=== PATIENT | female | born 1945 | race Caucasian/White ===

== ENCOUNTER 2016-10-05 11:14 | Emergency (ER) | payer OTHER ==
[~2016-10-05] VITALS: Ht 152.4 cm; Wt 51.0 kg
[2016-10-05 11:14] VITALS: TEMP 36.9; Ht 152.4 cm; Wt 51.0 kg
[~2016-10-05 11:14] MED LIST: AMT24 PO; ASCO1CAP3 PO; BROM0.07 OPR; CHOL1000 PO; KLN5X PO; PRED1SUS3 OPL; SIMV40TA2 PO; TRIATAB3 PO; VENL150C56 PO
[2016-10-05] MEDS ORDERED: VENL75CA73 PO (12:02)
[2016-10-05] MEDS ORDERED: BUSP5TAB59 PO (12:03)
[2016-10-05] MEDS ORDERED: PRLSR20 PO (12:03)
[2016-10-05] MEDS ORDERED: SUMA100T16 PO (12:05)
[2016-10-05] MEDS ORDERED: ONDANSETRON INJ 2 MG/ML 2 ML VIAL IV STA (12:34)
[2016-10-05] MEDS ORDERED: SODIUM CHLORIDE 0.9% 1000ML 1,000 ML IV STA (12:34)
[2016-10-05] MEDS ORDERED: LOPERAMIDE HCL 2 MG CAP PO STA (12:34)
[2016-10-05 12:43] LABS: BASO % 0.1 %; BASO ABS # 0.01 K/uL (0-0.2); COMPLETE YES; EOS % 1.3 %; HEMATOCRIT 44.8 % (37-47); IG% 0.1 %; LYMPH % 9.1 %; LYMPH ABS # 0.72 K/uL (1.2-3.4); MEAN CELL VOLUME 88.9 fL (80-100); MEAN CORPUSCULAR HGB CONC 33.7 g/dl (32-36); MONO % 8.6 %; NEUT % 80.8 %; PLATELET COUNT 159 K/uL (130-400); RED BLOOD COUNT 5.04 M/uL (4.2-5.4); WHITE BLOOD COUNT 7.91 K/uL (4.8-10.8)
[2016-10-05 12:51] LABS: BUN/CREATININE RATIO 26.9 (10-20); CALCIUM 9.3 mg/dl (8.5-10.1); CREATININE 0.7 mg/dl (0.60-1.20); POTASSIUM 3.1 mmol/L (3.5-5.1)
[2016-10-05] MEDS ORDERED: LORAZEPAM 2 MG/ML 1 ML VIAL IV STA (12:51)
[2016-10-05] MEDS ORDERED: ONDA4TAB10 SL (15:23)
--- NOTE | 2016-10-05 15:23 | EMERGENCY ROOM VISIT NOTE ---
History Report prepared by Jhonnyibrizwan: Adrien Cobos Under the Supervision of: Dr. Souleymane White D.O. First contact with patient: 12:28 Chief Complaint: DIARRHEA Stated Complaint: FLU SX Nursing Triage Summary: patient to ED via BLS for n/v/d since 329 this morning. Patient states, "every thirty minutes I have diarrhea or vomit, its the third time since . I was told maybe its the flu. This time whats different is I just started feeling so weak." History of Present Illness The patient is a 71 year old female who presents to the Emergency Room with complaints of persistent diarrhea since 329 this morning. The patient also complains of nausea, vomiting, and abdominal cramping since 299. The patient is becoming increasingly lightheaded and weak as her symptoms continue. The patient tried taking anti-emetics at home this morning, which she vomited out after taking it. This is the patient's third time experiencing these symptoms since . Source of History: patient Onset: 329 this morning Position: other (GI) Quality: other (diarrhea) Timing: other (persistent) Associated Symptoms: + abdominal pain, + nausea, + vomiting, + weakness Review of Systems See HPI for pertinent positives & negatives. A total of 10 systems reviewed and were otherwise negative. Past Medical & Surgical Medical Problems: (1) Anxiety (2) HLD (hyperlipidemia) Family History Patient reports no known family medical history. Social History Smoking Status: Never Smoker Housing Status: lives with family Current/Historical Medications Scheduled Ascorbic Acid (Vitamin C), 1 CAP PO HS Buspirone Hcl (Buspirone Hcl), 1 TAB PO TID Cholecalciferol (Vitamin D3), 1 TAB PO BID Clonazepam (Clonazepam), 1 TAB PO QAM Clonazepam (Clonazepam), 0.5 TAB PO BID Omeprazole (Prilosec), 20 MG PO DAILY Ondasetron Odt (Zofran Odt), 4 MG SL Q6H Simvastatin (Zocor), 40 MG PO QPM Triamterene/Hctz (Triamterene/Hctz 37.5-25MG), 1 TAB PO QAM Venlafaxine Hcl (Venlafaxine Extended Rel), 75 MG PO DAILY Scheduled PRN Lubiprostone (Amitiza), 24 MCG PO QAM PRN for Constipation Sumatriptan Succinate (Imitrex), 33 MG PO PRN PRN for Migraine Allergies Coded Allergies: No Known Allergies (Unverified , 10/05/16) Physical Exam Vital Signs Date Time Temp Pulse Resp B/P Pulse Ox O2 Delivery O2 Flow Rate FiO2 10/05/16 15:35 106 18 137/85 93 Room Air 10/05/16 14:34 118 22 114/76 97 Room Air 10/05/16 13:19 104 10/05/16 12:43 109 18 133/81 96 Room Air 10/05/16 11:18 109 10/05/16 11:14 36.9 112 20 154/101 97 Room Air Physical Exam CONSTITUTIONAL/VITAL SIGNS: Reviewed / noted above. GENERAL: Non-toxic in appearance. INTEGUMENTARY: Warm, dry, and [place]. HEAD: Normocephalic. EYES: without scleral icterus or trauma. ENT/OROPHARYNX: clear and moist. LYMPHADENOPATHY/NECK: Is supple without lymphadenopathy or meningismus. RESPIRATORY: Lungs clear and equal. CARDIOVASCULAR: Regular rate and rhythm. GI/ABDOMEN: Soft and nontender. No organomegaly or pulsatile mass. No rebound or guarding. Hyperactive bowel sounds. EXTREMITIES: Warm and well perfused. BACK: No CVA tenderness. NEUROLOGICAL: Intact without focal deficits. PSYCHIATRIC: normal affect. MUSCULOSKELETAL: Normally developed with good muscle tone. Medical Decision & Procedures Laboratory Results 10/05/16 11:25 Red Blood Count 5.04, Mean Corpuscular Volume 88.9, Mean Corpuscular Hemoglobin 30.0, Mean Corpuscular Hemoglobin Concent 33.7, Mean Platelet Volume 10.0, Neutrophils (%) (Auto) 80.8, Lymphocytes (%) (Auto) 9.1, Monocytes (%) (Auto) 8.6, Eosinophils (%) (Auto) 1.3, Basophils (%) (Auto) 0.1, Neutrophils # (Auto) 6.39, Lymphocytes # (Auto) 0.72, Monocytes # (Auto) 0.68, Eosinophils # (Auto) 0.10, Basophils # (Auto) 0.01 10/05/16 11:25 Test 10/05/16 11:25 White Blood Count 7.91 K/uL (4.8-10.8) Red Blood Count 5.04 M/uL (4.2-5.4) Hemoglobin 15.1 g/dL (12.0-16.0) Hematocrit 44.8 % (37-47) Mean Corpuscular Volume 88.9 fL (80-100) Mean Corpuscular Hemoglobin 30.0 pg (25-34) Mean Corpuscular Hemoglobin Concent 33.7 g/dl (32-36) Platelet Count 159 K/uL (130-400) Mean Platelet Volume 10.0 fL (7.4-10.4) Neutrophils (%) (Auto) 80.8 % Lymphocytes (%) (Auto) 9.1 % Monocytes (%) (Auto) 8.6 % Eosinophils (%) (Auto) 1.3 % Basophils (%) (Auto) 0.1 % Neutrophils # (Auto) 6.39 K/uL (1.4-6.5) Lymphocytes # (Auto) 0.72 K/uL (1.2-3.4) Monocytes # (Auto) 0.68 K/uL (0.11-0.59) Eosinophils # (Auto) 0.10 K/uL (0-0.5) Basophils # (Auto) 0.01 K/uL (0-0.2) RDW Standard Deviation 46.5 fL (36.4-46.3) RDW Coefficient of Variation 14.2 % (11.5-14.5) Immature Granulocyte % (Auto) 0.1 % Immature Granulocyte # (Auto) 0.01 K/uL (0.00-0.02) Anion Gap 12.0 mmol/L (3-11) Est Creatinine Clear Calc Drug Dose 53.7 ml/min Estimated GFR () 101.7 Estimated GFR (Non- 87.8 BUN/Creatinine Ratio 26.9 (10-20) Calcium Level 9.3 mg/dl (8.5-10.1) Total Bilirubin 0.5 mg/dl (0.2-1) Direct Bilirubin 0.1 mg/dl (0-0.2) Aspartate Amino Transf (AST/SGOT) 29 U/L (15-37) Alanine Aminotransferase (ALT/SGPT) 54 U/L (12-78) Alkaline Phosphatase 57 U/L (45-117) Total Protein 7.2 gm/dl (6.4-8.2) Albumin 4.0 gm/dl (3.4-5.0) Lipase 155 U/L (73-393) Laboratory results as stated above per my review. Medications Administered Medications (Trade) Dose Ordered Sig/Mallory Route Start Time Stop Time Status Last Admin Dose Admin Sodium Chloride (Nss 1000ml) 1,000 ml @ 999 mls/hr Q1H1M STAT IV 10/05/16 12:34 10/05/16 13:34 DC 10/05/16 12:34 999 MLS/HR Ondansetron HCl (Zofran Inj) 4 mg NOW STAT IV 10/05/16 12:34 10/05/16 12:35 DC 10/05/16 12:42 4 MG Loperamide HCl (Imodium Cap) 2 mg NOW STAT PO 10/05/16 12:34 10/05/16 12:35 DC 10/05/16 12:42 2 MG Lorazepam (Ativan Inj) 0.5 mg NOW STAT IV 10/05/16 12:51 10/05/16 12:52 DC 10/05/16 13:11 0.5 MG Potassium Chloride (Klor-Con M10) 40 meq NOW STAT PO 10/05/16 15:26 10/05/16 15:27 DC 10/05/16 15:34 40 MEQ ECG Indication: nausea Rate (beats per minute): 106 Rhythm: sinus tachycardia Findings: no acute ischemic change, no ectopy ED Course 1230: Previous medical records were reviewed. The patient was evaluated in room C7. A complete history and physical examination was performed. 1234: Imodium 2 mg PO, Zofran 4 mg IV, NSS 1000 ml @ 999 mls/hr. 1251: Ativan 0.5 mg IV. 1525: Reassessed the patient. Discussed the findings with her. She verbalized understanding and agreement. The patient is ready for discharge. Medical Decision Differential considered: pancreatitis, hepatitis, or acute cholecystitis, AAA, UTI, pyelonephritis, kidney stones, appendicitis, diverticulitis, shingles, bowel obstruction mesenteric ischemia, intussusception,hernia. This is a 71-year-old female who presents to the ED with a chief complaint nausea, vomiting and diarrhea. The patient also has some abdominal cramps. She states that her symptoms started around 3:30 in the morning. She states that she is not sure if this is related to anxiety or a GI illness. The patient states that she had 2 recent deaths in the family. She doesn't history of anxiety. Her vital signs are stable. Physical exam was unremarkable. Blood work reveals a normal CBC. Potassium was 3.1 and BUN is 19. Lipase is negative. Metabolic panel was unremarkable. The patient was told the results the test per she was treated with IV fluids as well as IV Zofran. She was given IV Ativan. She was given by mouth potassium. Her symptoms did seem to be improved at the time of disposition discharge. Impression Primary Impression: Nausea vomiting and diarrhea Scribe Attestation The scribe's documentation has been prepared under my direction and personally reviewed by me in its entirety. I confirm that the note above accurately reflects all work, treatment, procedures, and medical decision making performed by me. Departure Information Dispostion Home / Self-Care Prescriptions Ondasetron Odt (ZOFRAN ODT) 4 Mg Tab 4 MG SL Q6H for Nausea, #20 TAB Prov: Souleymane White D.O. 10/05/16 Referrals Lola Galeas C.R.N.P (PCP) Forms HOME CARE DOCUMENTATION FORM, IMPORTANT VISIT INFORMATION, WORK / SCHOOL INSTRUCTIONS Patient Instructions My [facility] Additional Instructions Follow-up with your doctor for further care and evaluation in 1-2 days. Return to the emergency department for worsening or new symptoms or any concerns. You have been examined and treated today on an emergency basis only. This is not a substitute for, or an effort to provide, complete comprehensive medical care. It is impossible to recognize and treat all injuries or illnesses in a single emergency department visit. It is therefore important that you follow up closely with your doctor. Call as soon as possible for an appointment. Zofran: Allow one tablet to dissolve under the tongue every 6 hours as needed for nausea or vomiting. Sent to [facility].
[2016-10-05] MEDS ORDERED: POTASSIUM CHLORIDE 10 MEQ TABCR PO STA (15:26)
[2016-10-05 15:35] VITALS: BP 137/85; PULSE 106; O2SAT 93
== END 2016-10-05 15:40 | disposition home or self-care (01) ==
LOC: EDBD 11:14 → C.EDC 11:15
DX: R11.2 Nausea with vomiting, unspecified (principal); R19.7 Diarrhea, unspecified; F41.9 Anxiety disorder, unspecified; E78.5 Hyperlipidemia, unspecified; Z79.899 Other long term (current) drug therapy

== ENCOUNTER → 2016-10-13 | Outpatient (CLI) | payer OTHER ==
[~2016-10-13] MED LIST changes: -BROM0.07 OPR; +BUSP5TAB59 PO; +ONDA4TAB10 SL; -PRED1SUS3 OPL; +PRLSR20 PO; +SUMA100T16 PO; -VENL150C56 PO; +VENL75CA73 PO
--- NOTE | 2016-10-13 15:28 | DIAGNOSTIC IMAGING REPORT ---
THORACIC SPINE 3 VIEWS HISTORY: Pain THORACIC BACK PAIN COMPARISON: None. FINDINGS: There is no fracture. Moderate S-shaped scoliosis moderate degenerative disc change. No evidence for compression deformity. Mild osteopenia. IMPRESSION: Scoliosis. Moderate degenerative disc change. No acute process. Electronically signed by: Marco Buck M.D. 10/13/2016 3:27 PM Dictated Date/Time: 10/13/2016 3:24 PM
[2016-10-13 19:05] LABS: ALT/SGPT 40 U/L (12-78); BLOOD UREA NITROGEN 17 mg/dl (7-18); BUN/CREATININE RATIO 19.2 (10-20); CALCIUM 9.4 mg/dl (8.5-10.1); CARBON DIOXIDE 31 mmol/L (21-32); CHLORIDE 102 mmol/L (98-107); CREATININE 0.87 mg/dl (0.60-1.20); GLUCOSE 89 mg/dl (70-99); POTASSIUM 3.8 mmol/L (3.5-5.1); SODIUM 140 mmol/L (136-145)
[2016-10-13 19:15] LABS: ALB/GLOB RATIO 1.1 (0.9-2); ALKALINE PHOSPHATASE 54 U/L (45-117); AST/SGOT 25 U/L (15-37)
== END | disposition home or self-care (01) ==
LOC: C.LABPVFM 14:58
PROVIDERS: ATTEND Nurse Practitioner
DX: M54.6 Pain in thoracic spine (principal); E87.6 Hypokalemia; R00.0 Tachycardia, unspecified

== ENCOUNTER → 2017-05-02 | Outpatient (CLI) | payer OTHER ==
[~2017-05-02] MED LIST changes: -ONDA4TAB10 SL
[2017-05-02 13:13] LABS: BLOOD UREA NITROGEN 16 mg/dl (7-18); BUN/CREATININE RATIO 21.2 (10-20); CARBON DIOXIDE 30 mmol/L (21-32); CHLORIDE 103 mmol/L (98-107); CHOLESTEROL 191 mg/dl (0-200); CREATININE 0.73 mg/dl (0.60-1.20); GLUCOSE 101 mg/dl (70-99); POTASSIUM 3.3 mmol/L (3.5-5.1); SODIUM 141 mmol/L (136-145); TRIGLYCERIDES 87 mg/dl (0-150); VERY LOW DENSITY LIPOPROT CALC 17 mg/dl
[2017-05-02 13:18] LABS: CHOLESTEROL/HDL RATIO 2.4; HDL CHOLESTEROL 81 mg/dl; LDL CHOLESTEROL CALCULATED 93 mg/dl
== END | disposition home or self-care (01) ==
LOC: C.LABPVFM 09:43
PROVIDERS: ATTEND Nurse Practitioner
DX: I10 Essential (primary) hypertension (principal); M85.80 Other specified disorders of bone density and structure, unspecified site; E55.9 Vitamin D deficiency, unspecified; E78.5 Hyperlipidemia, unspecified

== ENCOUNTER → 2017-06-01 | Outpatient (CLI) | payer OTHER | END | disposition home or self-care (01) | LOC: C.LABPVFM 09:33 | PROVIDERS: ATTEND Nurse Practitioner | DX: E87.6 Hypokalemia (principal) ==

== ENCOUNTER → 2017-06-06 | Outpatient (CLI) | payer OTHER ==
--- NOTE | 2017-06-07 08:12 | MAMMOGRAPHY REPORT ---
BILATERAL DIGITAL SCREENING MAMMOGRAM TOMOSYNTHESIS WITH CAD: 06/06/2017 CLINICAL HISTORY: Asymptomatic. Personal history of left breast cancer status post breast conservati on treatment. TECHNIQUE: Breast tomosynthesis in addition to standard 2D mammography was performed. Current study was also evaluated with a Computer Aided Detection (CAD) system. COMPARISON: Comparison is made to exams dated: 05/24/2016 mammogram, 05/21/2015 mammogram, 05/19/2014 m ammogram, 05/14/2013 mammogram, 05/10/2012 mammogram, and 05/05/2011 mammogram - [facility] ter. BREAST COMPOSITION: The tissue of both breasts is heterogeneously dense, which may obscure small mas ses. FINDINGS: There is a possible cluster of microcalcifications in the lateral posterior right breast o nly seen on the CC view, for which additional spot magnification views are recommended. There is a 6 mm nodular asymmetry in the medial, middle one third of the left breast on the CC tomosynthesis imag es (slice 20/38), for which additional spot compression tomosynthesis views and possible ultrasound a re recommended. No other suspicious mass, architectural distortion or cluster of microcalcifications is seen bilatera lly. IMPRESSION: ACR BI-RADS CATEGORY 0: INCOMPLETE EVALUATION: NEED ADDITIONAL IMAGING EVALUATION The possible cluster of microcalcifications in the lateral posterior right breast, and 6 mm nodular a symmetry in the medial left breast need additional imaging evaluation. The patient will be called to schedule an appointment. Approximately 10% of breast cancers are not detected with mammography. A negative mammographic report should not delay biopsy if a clinically suggestive mass is present. Ayanna Bennett M.D. ay/:06/06/2017 16:45:55 [place]bel Architect: Elisa NORMAN(R)(M), [facility] letter sent: Addl Imaging 0 BI-RADS Code: ACR BI-RADS Category 0: Incomplete Evaluation: Need Additional Imaging Evaluation
== END | disposition home or self-care (01) ==
LOC: C.MAMM 13:37
PROVIDERS: ATTEND Nurse Practitioner
DX: Z12.31 Encounter for screening mammogram for malignant neoplasm of breast (principal); E55.9 Vitamin D deficiency, unspecified; M81.0 Age-related osteoporosis without current pathological fracture; M85.88 Other specified disorders of bone density and structure, other site; M85.852 Other specified disorders of bone density and structure, left thigh

== ENCOUNTER → 2017-06-21 | Outpatient (CLI) | payer OTHER ==
--- NOTE | 2017-06-22 07:48 | MAMMOGRAPHY REPORT ---
BILATERAL DIGITAL DIAGNOSTIC MAMMOGRAM TOMOSYNTHESIS AND TARGETED BILATERAL ULTRASOUND: 06/21/2017 CLINICAL HISTORY: Callback from screening mammogram for left breast asymmetry and right breast calcif ications. TECHNIQUE: Breast tomosynthesis in addition to standard 2D mammography was performed. Spot compress ion left CC 2-D and tomosynthesis images and spot magnification right cc and ML views were obtained. COMPARISON: Comparison is made to exams dated: 06/06/2017 mammogram, 05/24/2016 mammogram, 05/21/2015 m ammogram, 05/19/2014 mammogram, 05/14/2013 mammogram, and 05/10/2012 mammogram - [facility] nter. BREAST COMPOSITION: The tissue of both breasts is heterogeneously dense, which may obscure small mas ses. FINDINGS: Spot magnification views of the right breast demonstrate 2 adjacent clusters of calcificat ions in the right 9:00 posterior breast. One of the clusters is shown to be within an oval circumscr ibed 5 mm mass; the calcifications are faint and amorphous on the cc view and show layering within th e mass on the lateral view, consistent with benign milk of calcium within a cyst. The other adjacent small 2 mm cluster also shows layering on the lateral view, consistent with benign milk of calcium. Other scattered calcifications demonstrate layering on the lateral view, consistent with benign milk of calcium. No suspicious calcifications are noted on the additional views. The nodular 5 mm asymmetry seen within the left medial breast on the cc tomosynthesis images persists on the additional views, but appears similar to prior exams including the 2015 and 2-D images from t 2009 exam. Given the stability to prior exams, the finding likely represents normal fibroglandula r tissue. Targeted ultrasound was performed of the left medial breast in the region of the mammographic asymmet ry, which shows no suspicious masses or other suspicious sonographic abnormalities. Targeted ultraso und was performed of the area of the right breast mass with associated layering calcifications. In t he right breast at 9:00, 4 cm from the nipple, there is a round anechoic circumscribed mass with inte rnal layering punctate echogenic foci, consistent with a layering calcifications seen mammographicall y. The mass measures 3 x 4 mm and is consistent with a benign cyst. IMPRESSION: ACR BI-RADS CATEGORY 2: BENIGN, TARGETED ULTRASOUND ACR BI-RADS CATEGORY 2: BENIGN 1. Grouped calcifications in the right upper outer quadrant are benign and compatible with milk of c alcium. 2. Left medial breast asymmetry appears similar to prior exams including the 2016 and 2010 exams on the additional views, without corresponding suspicious sonographic abnormality evident. Findings are benign and compatible with normal fibroglandular tissue. There is no mammographic or targeted sonographic evidence of malignancy. A 1 year screening mammogram is recommended. The patient has been verbally notified of the results. Approximately 10% of breast cancers are not detected with mammography. A negative mammographic report should not delay biopsy if a clinically suggestive mass is present. Vandana Yun M.D. ah/:06/21/2017 15:04:55 [employer] Extension Agent: Korin NORMAN(R)(M), [facility] letter sent: Normal 1/2 BI-RADS Code: ACR BI-RADS Category 2: Benign Ultrasound BI-RADS: ACR BI-RADS Category 2: Benign
== END | disposition home or self-care (01) ==
LOC: C.MAMM 13:42
PROVIDERS: ATTEND Nurse Practitioner
DX: R92.0 Mammographic microcalcification found on diagnostic imaging of breast (principal); N64.89 Other specified disorders of breast

== ENCOUNTER 2017-06-30 21:15 | Emergency (ER) | payer OTHER ==
[~2017-06-30] VITALS: Ht 167.6 cm; Wt 56.0 kg
[2017-06-30 21:21] VITALS: Ht 167.6 cm; Wt 56.0 kg
[2017-06-30] MEDS ORDERED: SODIUM CHLORIDE 0.9% 1000ML 1,000 ML IV STA (21:26)
[2017-06-30] MEDS ORDERED: ONDANSETRON INJ 2 MG/ML 2 ML VIAL IV STA (21:26)
[2017-06-30] MEDS ORDERED: KETOROLAC TROMETHAMINE 30 MG/ML VIAL IV STA (21:26)
--- NOTE | 2017-06-30 21:35 | EMERGENCY ROOM VISIT NOTE ---
History Report prepared by Eunice: Rupal Rubio Under the Supervision of: Dr. Jose Dickey M.D. First contact with patient: 21:19 Chief Complaint: GI ASSESSMENT Stated Complaint: NAUSEA, VOMITING, DIARRHEA History of Present Illness The patient is a 72 year old female who presents to the Emergency Room with complaints of and episode of vomiting and diarrhea occurring two hours ago. The patient notes she was unable to have a bowel movement beginning 3 days ago. She takes Amitiza as needed for chronic constipation. The patient took Amitiza a few hours before her dinner--she vomited right after she finished eating. She notes nausea, diarrhea, clamminess, dizziness, intermittent chest pain, and abdominal cramping during the episode. She denies blood in vomit or diarrhea, or any current pain. The patient denies any sick contacts. She has a history of anxiety, a hiatal hernia, GERD, cancer, and a hysterectomy. Source of History: patient Onset: 2 hours ago Position: other (generalized) Quality: other (vomiting and diarrhea) Timing: other (episode) Associated Symptoms: + vomiting, + diarrhea Review of Systems See HPI for pertinent positives & negatives. A total of 10 systems reviewed and were otherwise negative. Past Medical & Surgical Medical Problems: (1) Anxiety (2) HLD (hyperlipidemia) Family History Patient reports no known family medical history. Social History Smoking Status: Never Smoker Housing Status: lives with family Current/Historical Medications Scheduled Ascorbic Acid (Vitamin C), 1 CAP PO HS Buspirone Hcl (Buspirone Hcl), 1 TAB PO TID Chlorthalidone (Hygroton), 25 MG PO QAM Cholecalciferol (Vitamin D3), 1 TAB PO BID Clonazepam (Clonazepam), 1 TAB PO HS Clonazepam (Clonazepam), 0.5 TAB PO BID Metoprolol Succ (Toprol Xl) (Toprol-Xl), 25 MG PO DAILY Simvastatin (Zocor), 40 MG PO QPM Venlafaxine Hcl (Venlafaxine Extended Rel), 75 MG PO DAILY Venlafaxine Hcl (Effexor), 37.5 MG PO DAILY Scheduled PRN Lubiprostone (Amitiza), 24 MCG PO QAM PRN for Constipation Ondansetron Hcl (Zofran), 4 MG PO for Nausea Sumatriptan Succinate (Imitrex), 33 MG PO PRN PRN for Migraine Allergies Coded Allergies: Lisinopril (Verified Adverse Reaction, Intermediate, COUGH, 06/30/17) Physical Exam Vital Signs Date Time Temp Pulse Resp B/P (MAP) Pulse Ox O2 Delivery O2 Flow Rate FiO2 06/30/17 22:31 77 16 140/72 97 Room Air 06/30/17 21:59 36.5 06/30/17 21:21 86 16 132/74 98 Room Air Physical Exam GENERAL: Patient is in no acute distress. HEENT: No acute trauma, normocephalic atraumatic, mucous membranes moist, no nasal congestion, no scleral icterus. NECK: No stridor, no adenopathy, no meningismus, trachea is midline. LUNGS: Clear to auscultation bilaterally, no wheeze, no rhonchi, breath sounds equal. HEART: Without murmurs gallops or rubs, regular rate and rhythm. ABDOMEN: Soft, nontender, bowel sounds positive and hyperactive, no hernias, no peritonitis. EXTREMITIES: No cyanosis or edema, full range of motion of all the joints without pain or difficulty, no signs for acute trauma. NEUROLOGIC: Oriented x 3, no acute motor or sensory deficits, no focal weakness. SKIN: No rash, no jaundice, no diaphoresis. Medical Decision & Procedures ER Provider Diagnostic Interpretation: Radiology results as stated below per my review and radiologist interpretation: ABDOMEN 2VIEW W/PA CHEST RTN FINDINGS: Lungs are clear. Diaphragms smooth. Prior operative changes left axilla. Nonobstructive bowel pattern. IMPRESSION: Negative study The above report was generated using voice recognition software. It may contain grammatical, syntax or spelling errors. Electronically signed by: Marco Buck M.D. Laboratory Results 06/30/17 21:35 Red Blood Count 4.94, Mean Corpuscular Volume 88.3, Mean Corpuscular Hemoglobin 30.0, Mean Corpuscular Hemoglobin Concent 33.9, Mean Platelet Volume 10.0, Neutrophils (%) (Auto) 62.7, Lymphocytes (%) (Auto) 26.7, Monocytes (%) (Auto) 9.3, Eosinophils (%) (Auto) 0.9, Basophils (%) (Auto) 0.2, Neutrophils # (Auto) 5.13, Lymphocytes # (Auto) 2.19, Monocytes # (Auto) 0.76, Eosinophils # (Auto) 0.07, Basophils # (Auto) 0.02 06/30/17 21:35 Test 06/30/17 21:35 06/30/17 23:43 06/30/17 23:45 White Blood Count 8.19 K/uL (4.8-10.8) Red Blood Count 4.94 M/uL (4.2-5.4) Hemoglobin 14.8 g/dL (12.0-16.0) Hematocrit 43.6 % (37-47) Mean Corpuscular Volume 88.3 fL (80-100) Mean Corpuscular Hemoglobin 30.0 pg (25-34) Mean Corpuscular Hemoglobin Concent 33.9 g/dl (32-36) Platelet Count 182 K/uL (130-400) Mean Platelet Volume 10.0 fL (7.4-10.4) Neutrophils (%) (Auto) 62.7 % Lymphocytes (%) (Auto) 26.7 % Monocytes (%) (Auto) 9.3 % Eosinophils (%) (Auto) 0.9 % Basophils (%) (Auto) 0.2 % Neutrophils # (Auto) 5.13 K/uL (1.4-6.5) Lymphocytes # (Auto) 2.19 K/uL (1.2-3.4) Monocytes # (Auto) 0.76 K/uL (0.11-0.59) Eosinophils # (Auto) 0.07 K/uL (0-0.5) Basophils # (Auto) 0.02 K/uL (0-0.2) RDW Standard Deviation 43.2 fL (36.4-46.3) RDW Coefficient of Variation 13.3 % (11.5-14.5) Immature Granulocyte % (Auto) 0.2 % Immature Granulocyte # (Auto) 0.02 K/uL (0.00-0.02) Anion Gap 7.0 mmol/L (3-11) Est Creatinine Clear Calc Drug Dose 47.0 ml/min Estimated GFR () 68.1 Estimated GFR (Non- 58.8 BUN/Creatinine Ratio 28.4 (10-20) Calcium Level 10.3 mg/dl (8.5-10.1) Total Bilirubin 0.2 mg/dl (0.2-1) Aspartate Amino Transf (AST/SGOT) 32 U/L (15-37) Alanine Aminotransferase (ALT/SGPT) 36 U/L (12-78) Alkaline Phosphatase 80 U/L (45-117) Total Protein 7.9 gm/dl (6.4-8.2) Albumin 4.5 gm/dl (3.4-5.0) Globulin 3.4 gm/dl (2.5-4.0) Albumin/Globulin Ratio 1.3 (0.9-2) Lipase 248 U/L (73-393) Bedside Troponin I < 0.030 ng/ml (0-0.045) Urine Color YELLOW Urine Appearance CLEAR (CLEAR) Urine pH 6.0 (4.5-7.5) Urine Specific [place] 1.012 (1.000-1.030) Urine Protein NEG (NEG) Urine Glucose (UA) NEG (NEG) Urine Ketones NEG (NEG) Urine Occult Blood NEG (NEG) Urine Nitrite NEG (NEG) Urine Bilirubin NEG (NEG) Urine Urobilinogen NEG (NEG) Urine Leukocyte Esterase MODERATE (NEG) Urine WBC (Auto) 5-10 /hpf (0-5) Urine RBC (Auto) 0-4 /hpf (0-4) Urine Hyaline Casts (Auto) 1-5 /lpf (0-5) Urine Epithelial Cells (Auto) 10-20 /lpf (0-5) Urine Bacteria (Auto) NEG (NEG) Laboratory results reviewed by me. Medications Administered Medications (Trade) Dose Ordered Sig/Mallory Route Start Time Stop Time Status Last Admin Dose Admin Ondansetron HCl (Zofran Inj) 4 mg NOW STAT IV 06/30/17 21:26 06/30/17 21:28 DC 06/30/17 21:35 4 MG Sodium Chloride 1,000 ml @ 999 mls/hr Q1H1M STAT IV 06/30/17 21:26 06/30/17 22:26 DC 06/30/17 21:26 999 MLS/HR Ketorolac Tromethamine (Toradol Inj) 30 mg NOW STAT IV 06/30/17 21:26 06/30/17 21:28 DC 06/30/17 21:48 30 MG Sodium Chloride 500 ml @ 999 mls/hr Q31M STAT IV 06/30/17 22:46 06/30/17 23:16 DC 06/30/17 22:48 999 MLS/HR ECG Indication: vomiting Rate (beats per minute): 73 Rhythm: normal sinus Findings: no acute ischemic change, no ectopy ED Course 2119: The patient was evaluated in room B9. A complete history and physical exam was performed. 2125: Toradol Inj 30 mg IV, Sodium Chloride 1000 ml @ 999 mls/hr IV, Zofran Inj 4 mg IV. 2245: Sodium Chloride 500 ml @ 999 mls/hr IV. 2304: I reassessed the patient she is feeling better. 0012: Reevaluated the patient. Discussed results and discharge instructions: She verbalized understanding and agreement. The patient is ready for discharge. Medical Decision Differential diagnoses include: food borne illness, viral illness, medication reaction, dehydration, UTI, anemia, electrolyte imbalance. There is no leukocytosis or concerning anemia. No significant electrolyte abnormality, kidney failure or hepatitis. There is no pancreatitis. Urinalysis does not show evidence for infection. Abdominal series shows no bowel obstruction, free air or pneumonia. On exam, the patient was not febrile or toxic. There was no peritonitis. EKG shows a sinus rhythm, no ischemia. Cardiac enzyme testing 2 is not consistent with acute cardiac injury. Patient received IV saline, IV Zofran and IV Toradol, she is resting comfortably. She is tolerating oral liquids. She is stable for discharge. The cause for the presentation is not clear. She may have eaten something that gave her difficulty, this could have been a reaction to her medication, possibly , she has the start of a GI bug. In any regard, I do think she can be discharged with symptomatic care. She does have Zofran to use at home if needed. If worsening, she can return. Blood Pressure Screening Patient's blood pressure: Elevated blood pressure Blood pressure disposition: Elevated BP felt to be situational Impression Primary Impression: Nausea Additional Impressions: Vomiting Diarrhea Scribe Attestation The scribe's documentation has been prepared under my direction and personally reviewed by me in its entirety. I confirm that the note above accurately reflects all work, treatment, procedures, and medical decision making performed by me. Departure Information Dispostion Home / Self-Care Referrals Lola Galeas C.R.N.P (PCP) Forms HOME CARE DOCUMENTATION FORM, IMPORTANT VISIT INFORMATION Patient Instructions My [facility] Additional Instructions bland diet---crackers, soup, toast, gatorade zofran as before for nausea rest return for worsening symptoms, fever, vomiting lab testing and imaging were all ok today Problem Qualifiers
[2017-06-30 21:49] LABS: BASO % 0.2 %; BASO ABS # 0.02 K/uL (0-0.2); COMPLETE YES; EOS % 0.9 %; HEMATOCRIT 43.6 % (37-47); IG% 0.2 %; LYMPH % 26.7 %; LYMPH ABS # 2.19 K/uL (1.2-3.4); MEAN CELL VOLUME 88.3 fL (80-100); MEAN CORPUSCULAR HGB CONC 33.9 g/dl (32-36); MONO % 9.3 %; NEUT % 62.7 %; PLATELET COUNT 182 K/uL (130-400); RED BLOOD COUNT 4.94 M/uL (4.2-5.4); WHITE BLOOD COUNT 8.19 K/uL (4.8-10.8)
[2017-06-30] MEDS ORDERED: METO25TA3 PO (21:58)
[2017-06-30] MEDS ORDERED: EFF/375 PO (21:58)
[2017-06-30] MEDS ORDERED: HYG/25 PO (21:58)
[2017-06-30 21:59] VITALS: TEMP 36.5
[2017-06-30] MEDS ORDERED: ONDA4TAB46 PO (22:02)
[2017-06-30 22:06] LABS: BUN/CREATININE RATIO 28.4 (10-20); CALCIUM 10.3 mg/dl (8.5-10.1); CREATININE 0.97 mg/dl (0.60-1.20)
[2017-06-30 22:09] LABS: ALB/GLOB RATIO 1.3 (0.9-2)
--- NOTE | 2017-06-30 22:18 | DIAGNOSTIC IMAGING REPORT ---
ABDOMEN 2VIEW W/PA CHEST RTN CLINICAL HISTORY: ABDOMINAL PAIN/GI pain. Nausea. COMPARISON STUDY: 05/06/2014 FINDINGS: Lungs are clear. Diaphragms smooth. Prior operative changes left axilla. Nonobstructive bowel pattern. IMPRESSION: Negative study The above report was generated using voice recognition software. It may contain grammatical, syntax or spelling errors. Electronically signed by: Marco Buck M.D. 06/30/2017 10:17 PM Dictated Date/Time: 06/30/2017 10:16 PM
[2017-06-30] MEDS ORDERED: SODIUM CHLORIDE 0.9% 500ML 500 ML IV STA (22:46)
[2017-07-01] LABS: URINE APPEARANCE CLEAR (CLEAR); URINE BILIRUBIN NEG (NEG); URINE COLOR YELLOW; URINE NITRITE NEG (NEG); URINE SPECIFIC GRAVITY 1.012 (1.000-1.030); UROBILINOGEN NEG (NEG); ZZUR CULT IF INDIC CLEAN CATCH NO
[2017-07-01 00:01] LABS: MANUAL MICROSCOPIC REQUIRED? NO; REVIEW REQ? NO
[2017-07-01 00:30] VITALS: PULSE 77; O2SAT 95
[2017-07-01 00:31] VITALS: BP 114/65
== END 2017-07-01 00:42 | disposition home or self-care (01) ==
LOC: EDBD 21:15 → C.EDB 21:17
DX: R11.2 Nausea with vomiting, unspecified (principal); R19.7 Diarrhea, unspecified; F41.9 Anxiety disorder, unspecified; K21.9 Gastro-esophageal reflux disease without esophagitis; Z85.9 Personal history of malignant neoplasm, unspecified; E78.5 Hyperlipidemia, unspecified; Z79.899 Other long term (current) drug therapy

== ENCOUNTER → 2017-08-08 | Outpatient (CLI) | payer OTHER ==
[~2017-08-08] MED LIST changes: +EFF/375 PO; +HYG/25 PO; +METO25TA3 PO; +ONDA4TAB46 PO; -PRLSR20 PO; -TRIATAB3 PO
== END | disposition home or self-care (01) ==
LOC: C.LABPVFM 13:50
PROVIDERS: ATTEND Nurse Practitioner
DX: E87.6 Hypokalemia (principal)

== ENCOUNTER → 2017-08-30 | Outpatient (CLI) | payer OTHER | END | disposition home or self-care (01) | LOC: C.LABPVFM 10:15 | PROVIDERS: ATTEND Internal Medicine Endocrinology, Diabetes & Metabolism | DX: M81.0 Age-related osteoporosis without current pathological fracture (principal) ==

== ENCOUNTER → 2017-09-15 | Outpatient (CLI) | payer OTHER | END | disposition home or self-care (01) | LOC: C.LABPVFM 10:37 | PROVIDERS: ATTEND Nurse Practitioner | DX: E87.6 Hypokalemia (principal); M81.0 Age-related osteoporosis without current pathological fracture ==

== ENCOUNTER → 2017-10-05 | Outpatient (CLI) | payer OTHER | END | disposition home or self-care (01) | LOC: C.LABPVFM 14:11 | PROVIDERS: ATTEND Internal Medicine Endocrinology, Diabetes & Metabolism | DX: M81.0 Age-related osteoporosis without current pathological fracture (principal) ==

== ENCOUNTER → 2017-11-15 | Outpatient (CLI) | payer OTHER | END | disposition home or self-care (01) | LOC: C.LABPVFM 10:35 | PROVIDERS: ATTEND Nurse Practitioner | DX: E87.6 Hypokalemia (principal); E55.9 Vitamin D deficiency, unspecified; M81.0 Age-related osteoporosis without current pathological fracture; E34.9 Endocrine disorder, unspecified ==

== ENCOUNTER → 2018-04-13 | Outpatient (CLI) | payer OTHER | END | disposition home or self-care (01) | LOC: C.LABPVFM 10:20 | PROVIDERS: ATTEND Nurse Practitioner | DX: E78.5 Hyperlipidemia, unspecified (principal) ==

== ENCOUNTER 2020-07-29 14:04 | Inpatient (IN) ==
--- NOTE | 2020-07-29 14:54 | Emergency Department Note ---
Impression & Plan Bilateral leg weakness, Hypertension, Lower back pain, Spinal stenosis ED Provider Note NAME: SHARON THOMPSON AGE: 75 SEX: F : 1945 ARRIVES VIA: Walk-In INFORMANT: [Patient] ED PROVIDER(S): [Jose Dickey MD] CHIEF COMPLAINT: Weakness HISTORY OF PRESENT ILLNESS: The patient is a 75-year-old female who has had several weeks of chest pain. She was evaluated at the ED 2 weeks ago and her cardiac work-up was normal. Today, she was at [facility] and had an EGD, they did not find any ulcers or reasons for her discomfort. The patient states that in addition to the chest pain, she had 3 days of clumsiness with her legs especially her left. She has a hard time walking and keeping her balance. She is not really dizzy. No headache. Her arms seem to function fine and her speech seems normal. Patient feels that her left leg is worse than the right and she feels that in general, she is worse than she was just a few days ago. She has not fallen. The patient also has some mid to lower back pain. This pain is moderate in severity and worse with certain movements. She thinks it might be related to why her legs are so weak. She was referred here by her doctors office. REVIEW OF SYSTEMS: See HPI for pertinent positives and negatives. A total of ten systems were reviewed and were otherwise negative. PMHx/PSHx: See Below SOCIAL HISTORY: See Below. PHYSICAL EXAM: GENERAL: Patient is in no acute distress. HEENT: No acute trauma, normocephalic atraumatic, mucous membranes moist, no nasal congestion, no scleral icterus. NECK: No stridor, no adenopathy, no meningismus, trachea is midline. LUNGS: Clear to auscultation bilaterally, no wheeze, no rhonchi, breath sounds equal. HEART: Without murmurs gallops or rubs, regular rate and rhythm. ABDOMEN: Soft, nontender, bowel sounds positive, no hernias, no peritonitis. EXTREMITIES: No cyanosis or edema, full range of motion of all the joints without pain or difficulty, no signs for acute trauma. NEUROLOGIC: Oriented x 3. She has no upper extremity pronator drift or cerebellar dysfunction. There is no speech slur or facial droop. She has a hard time holding her legs off the bed especially on the left. Her left leg cerebellar function is poor, the right leg cerebellar function is better than the left but not normal. The plantar flexion and dorsiflexion of the feet seems intact. She has 2/4 patellar and Achilles reflexes bilaterally. SKIN: No rash, no jaundice, no diaphoresis. Back: No real tenderness over the lumbar back, her pain does worsen with certain movements. DIFFERENTIAL DIAGNOSIS: Infection, dehydration, metabolic abnormality, stroke, epidural hematoma, transverse myelitis, disc disease, Nora Reilly syndrome, hypo/hyperglycemia, e lectrolyte disturbance, anemia, hypoxia, cardiac sources, intracerebral event, toxicologic, neurologic, as well as other pathologies. EMERGENCY DEPARTMENT COURSE/PROCEDURES: ECG: Indication was weakness. The ECG shows a normal sinus rhythm with a rate of 88. There is no ST elevation, no PVCs. The QTc is 438. Continuous Cardiac Monitoring: An order was placed for continuous cardiac monitoring. The monitor shows a rate of 94 with normal sinus rhythm. MEDICAL DECISION MAKING: There is no leukocytosis or concerning anemia. There is a normal platelet count. No significant electrolyte abnormality or kidney failure. There is no worrisome liver enzyme elevation. Patient appears to be in a euthyroid state. ECG shows a sinus rhythm, no acute ischemia. Cardiac enzyme testing x1 is not consistent with acute cardiac injury. Urinalysis does not show evidence for infection. Chest x-ray does not show pneumonia or CHF. Brain MRI does not show any stroke or mass lesion. Lumbar spine MRI does show spinal stenosis, in particular, moderate to severe spinal stenosis at L4 and L5. On my exam, the patient did have some difficulty with her gait, her legs seemed weak. She had a hard time standing. She had cerebellar findings in her lower extremities, especially on the left. Patient received IV Toradol for pain, she was given IV saline. She received a total of 10 mg of IV Decadron. I spoke to neurology as well as spinal surgery. The patient is going to be hospitalized for more work-up. Patient will have an MRI of her cervical and thoracic spine while in the hospital to further evaluate her weakness. The patient is aware of the need to stay in the hospital. At this point, the cause for her current condition is unclear, further neurologic work-up is warranted. I did speak with the case management team, the on-call hospitalist was consulted. Past Med/Surg History Medical History Abnormal sensation of lower extremity Breast cancer Generalized anxiety disorder Knee pain, right Myalgia Poor balance Sensorineural hearing loss of both ears Tachycardia Vertigo Surgical History History of breast biopsy History of cataract surgery History of chemotherapy chemotherapeutics History of hemorrhoidectomy History of hysterectomy History of lumpectomy Family History Mother Breast cancer Father Hearing loss Brother Hearing loss Other Hypertension No family history of bleeding disorder Denies family history of Ovarian cancer Prostate cancer Myocardial infarction Colorectal cancer Social History Smoking Status: Never smoker Hx Alcohol Use: No Hx Substance Use: No Preferred Language: Cambodian marital status: Current Living Situation: Spouse current occupational status: retired Feels Safe at Home: Yes caffeine: Yes Dental Care, Regularly: Yes Physical Activity Frequency: 3-4 Times per Week Seatbelt Use: always Sunscreen Use: Yes Allergies Allergies Allergy/AdvReac Type Severity Reaction Status Date / Time No Known Allergies Allergy Verified 07/16/20 11:26 Home Meds Home Medications Medication Instructions Recorded Confirmed ascorbic acid (vitamin C) 500 mg 500 mg PO DAILY cap 08/15/19 07/29/20 capsule buspirone 15 mg tablet 15 mg PO TID #30 tab 08/15/19 07/29/20 calcium citrate 500 mg PO DAILY tab 08/15/19 07/29/20 clonazepam 0.5 mg tablet 0.5 mg PO BID tab 08/15/19 07/29/20 cholecalciferol (vitamin D3) 10 800 units PO QPM cap 09/18/19 07/29/20 mcg (400 unit) capsule chlorthalidone 25 mg PO 3XWK 07/12/20 07/29/20 cholecalciferol (vitamin D3) 25 mcg PO QPM 07/12/20 07/29/20 [Vitamin D3] magnesium oxide 84.5 mg PO QAM 07/12/20 07/29/20 meclizine 25 mg PO TID PRN 07/12/20 07/29/20 metoprolol succinate 25 mg PO QAM 07/12/20 07/29/20 polyethylene glycol 3350 [Miralax] 17 g PO DAILY PRN 07/12/20 07/29/20 psyllium husk [Metamucil] 1 tsp PO DAILY PRN 07/12/20 07/29/20 sertraline 100 mg PO QPM 07/12/20 07/29/20 simvastatin 40 mg PO QPM 07/12/20 07/29/20 clonazepam 1 mg PO QPM 07/29/20 07/29/20 pantoprazole 40 mg PO DAILYBB 07/29/20 07/29/20 sertraline 150 mg PO QAM 07/29/20 07/29/20 Previous Rx's Medication Instructions Recorded sumatriptan succinate 100 mg tablet 100 mg PO .COMPLEX #9 tab 12/23/19 gabapentin 100 mg capsule 100 mg PO HS #90 cap 06/26/20 potassium chloride 20 mEq 20 meq PO DAILY #30 tab 07/16/20 tablet,extended release Results & Data (ED) Vital Signs Vital Signs - 24 hr 07/29/20 14:19 07/29/20 15:08 07/29/20 15:10 Temperature 37.2 C Temperature Source Oral Pulse Rate 93 H 89 89 Pulse Rate [Left Finger] Pulse Rate from SpO2 Sensor 90 Respiratory Rate 20 20 22 Blood Pressure 151/86 H 147/87 H Blood Pressure [Right Arm] Blood Pressure Mean 107 96 Blood Pressure Mean [Right Arm] Pulse Oximetry 97 96 97 Oxygen Delivery Method Room Air Room Air Sepsis Recent Fever Within 48 Hours No Sepsis New/Unexplained Change in Mental Status No Sepsis Action Taken by Nursing No Action Required 07/29/20 15:11 07/29/20 15:27 07/29/20 15:30 Temperature Temperature Source Pulse Rate 90 91 H 90 Pulse Rate [Left Finger] Pulse Rate from SpO2 Sensor 90 97 H Respiratory Rate 20 20 19 Blood Pressure 147/87 H Blood Pressure [Right Arm] Blood Pressure Mean 107 Blood Pressure Mean [Right Arm] Pulse Oximetry 94 96 90 Oxygen Delivery Method Room Air Sepsis Recent Fever Within 48 Hours Sepsis New/Unexplained Change in Mental Status Sepsis Action Taken by Nursing 07/29/20 15:31 07/29/20 16:00 07/29/20 16:13 Temperature Temperature Source Pulse Rate 89 100 H Pulse Rate [Left Finger] 95 H Pulse Rate from SpO2 Sensor 89 Respiratory Rate 20 17 18 Blood Pressure 154/94 H Blood Pressure [Right Arm] 158/87 H Blood Pressure Mean 107 Blood Pressure Mean [Right Arm] 110 Pulse Oximetry 96 97 Oxygen Delivery Method Room Air Sepsis Recent Fever Within 48 Hours Sepsis New/Unexplained Change in Mental Status Sepsis Action Taken by Nursing 07/29/20 16:14 07/29/20 18:24 07/29/20 18:25 Temperature Temperature Source Pulse Rate 99 H 95 H Pulse Rate [Left Finger] Pulse Rate from SpO2 Sensor 94 H 95 H Respiratory Rate 12 20 Blood Pressure 158/87 H 175/108 H Blood Pressure [Right Arm] Blood Pressure Mean 105 124 Blood Pressure Mean [Right Arm] Pulse Oximetry 98 94 Oxygen Delivery Method Sepsis Recent Fever Within 48 Hours Sepsis New/Unexplained Change in Mental Status Sepsis Action Taken by [facility] Medications Current Medication List: was personally reviewed by me Laboratory Data Attestation: I reviewed the patient's lab results. Result diagrams: 07/29/20 15:10 07/29/20 15:10 Lab Results 07/29/20 07/29/20 07/29/20 Range/Units 15:06 15:10 15:10 WBC 5.87 (4.8-10.8) K/uL RBC 4.64 (4.2-5.4) M/uL Hgb 13.8 (12.0-16.0) g/dL Hct 41.8 (37-47) % MCV 90.1 (80-100) fL MCH 29.7 (25-34) pg MCHC 33.0 (32-36) g/dL RDW Std Deviation 44.6 (36.4-46.3) fL RDW Coeff of Sydni 13.5 (11.5-14.5) % Plt Count 236 (130-400) K/uL MPV 9.7 (7.4-10.4) fL Immature Gran % (Auto) 0.2 % Neut % (Auto) 60.0 % Lymph % (Auto) 26.6 % Blount % (Auto) 11.8 % Eos % (Auto) 1.2 % Baso % (Auto) 0.2 % Neut # (Auto) 3.53 (1.4-6.5) K/uL Lymph # (Auto) 1.56 (1.2-3.4) K/uL Blount # (Auto) 0.69 H (0.11-0.59) K/uL Eos # (Auto) 0.07 (0-0.5) K/uL Baso # (Auto) 0.01 (0-0.2) K/uL Immature Gran # (Auto) 0.01 (0.00-0.02) K/uL Sodium 144 (136-145) mmol/L Potassium 3.6 (3.5-5.1) mmol/L Chloride 105 (98-107) mmol/L Carbon Dioxide 35 H (21-32) mmol/L Anion Gap 4.0 (3-11) BUN 16 (7-18) mg/dl Creatinine 0.73 (0.6-1.2) mg/dl Est Cr Clr Drug Dosing 54.8 ml/min Est GFR ( Amer) 94.0 Est GFR (Non-Af Amer) 81.1 BUN/Creatinine Ratio 21.1 H (10-20) Glucose 121 H (70-99) mg/dl Calcium 9.8 (8.5-10.1) mg/dl Magnesium 2.0 (1.8-2.4) mg/dl Total Bilirubin 0.4 (0.2-1) mg/dl AST 26 (15-37) U/L ALT 30 (12-78) U/L Alkaline Phosphatase 37 L (45-117) U/L Troponin I < 0.015 (0-0.045) ng/ml Total Protein 7.3 (6.4-8.2) gm/dl Albumin 4.0 (3.4-5.0) gm/dl Globulin 3.3 (2.5-4.0) gm/dl Albumin/Globulin Ratio 1.2 (0.9-2) TSH 1.100 (0.300-4.500) uIu/ml Urine Color Yellow Urine Appearance Clear (Clear) Urine pH 7.5 (4.5-7.5) Ur Specific [place] 1.012 (1.000-1.030) Urine Protein Negative (Negative) Urine Glucose (UA) Negative (Negative) Urine Ketones Negative (Negative) Urine Blood Negative (Negative) Urine Nitrite Negative (Negative) Urine Bilirubin Negative (Negative) Urine Urobilinogen Negative (Negative) Ur Leukocyte Esterase 1+ H (Negative) Urine WBC (Auto) 1-5 (0-5) /hpf Urine RBC (Auto) 0-4 (0-4) /hpf U Hyaline Cast (Auto) 1-5 (0-5) /lpf U Epithel Cells (Auto) >30 H (0-5) /lpf Urine Bacteria (Auto) Negative (Negative) Ur Renal Epithelial Cell 0-5 (0-5) /lpf Calcium Oxalate Crystal Present A (None Prsent) Administered Medications Discontinued Medications Sodium Chloride (Nss) 500 mls @ 999 mls/hr IV .Q31M DEVONTE Stop: 07/29/20 15:30 Last Infusion: 07/29/20 15:58 Dose: 0 mls/hr Documented by: [id number] Admin: 07/29/20 15:14 Dose: 999 mls/hr Documented by: [id number] Ketorolac Tromethamine (Ketorolac Tromethamine 15 Mg/Ml Vial) 15 mg IV NOW STA Stop: 07/29/20 17:04 Last Admin: 07/29/20 18:26 Dose: 15 mg Documented by: [id number] Imaging Data Radiologist's Impression: XR chest 1V portable CLINICAL HISTORY: weakness COMPARISON STUDY: 07/12/2020 FINDINGS: The cardiac and mediastinal contours are normal. There is no evidence of focal pulmonary consolidation. There is no evidence of failure. No pleural effusions are visualized.[Surgical clips are visualized in the left axillary region. IMPRESSION: No active disease in the chest. MRI OF THE BRAIN WITHOUT CONTRAST CLINICAL HISTORY: Leg weakness, loss of balance, possible cerebellar stroke. REMOTE HISTORY OF BREAST CARCINOMA. COMPARISON STUDY: Noncontrast head CT dated 07/23/2018 FINDINGS: Sagittal T1, axial diffusion, proton density and T2 weighted axial, coronal FLAIR, and axial T1-weighted images were acquired. No intra or extra-axial mass lesions are visualized Axial diffusion-weighted images reveal no evidence of acute or subacute infarction. There is no evidence of ventricular dilatation. Proton density T2-weighted and FLAIR images reveal scattered foci of increased T2 signal within the white matter, likely on a small vessel basis. There are no abnormal flow voids. IMPRESSION: 1. No acute intracranial findings 2. No evidence of acute or subacute infarction 3. No evidence of intracranial mass on this noncontrast examination MR lumbar spine wo con CLINICAL HISTORY: Low back pain. Leg weakness. Loss of coordination. Remote history of breast carcinoma. TECHNIQUE: Sagittal and axial T1, T2 and STIR images were obtained. COMPARISON STUDY: X-ray study dated 06/23/2020 OBSERVATIONS: The vertebral bodies and posterior elements appear intact. There is no abnormal bony signal present to suggest a marrow replacement process. L1-2: No disc protrusions or extrusions. No evidence of spinal canal or neural foraminal compromise. L2-3: There is a minimal circumferential disc bulge. There is no spinal or foraminal stenosis. L3-4: There is a minimal circumferential disc bulge. There is slight flattening of the anterior thecal sac but no evidence of significant spinal or foraminal stenosis L4-5: There is a grade 1 spondylolisthesis of L4 on L5. There is a mild circum ferential disc bulge. There is facet joint arthropathy. There is moderate to severe spinal stenosis. The AP diameter of thecal sac measures 5 mm. L5-S1: Circumferential disc bulge. There is a slight triangular configuration of thecal sac but high-grade spinal stenosis is not felt to be present. There is no significant foraminal narrowing. 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 The conus medullaris and cauda equina appear normal. IMPRESSION: 1. The study is most significant for multifactorial moderate to severe L4-5 spinal stenosis. Discharge Plan Visit Data Chief Complaint: Back Injury/Pain Stated Complaint: BACK PAIN/LEG WEAKNESS ED Provider: Jose Dickey Discharge Problem: Bilateral leg weakness, Hypertension, Lower back pain, Spinal stenosis Patient Disposition: Admitted As Inpatient Condition: Fair Forms Stand Alone Forms: [facility] [address] Prescriptions Prescriptions: No Action sumatriptan succinate 100 mg tablet 100 mg PO .COMPLEX Qty: 9 RF: 3 gabapentin 100 mg capsule 100 mg PO HS Qty: 90 RF: 1 potassium chloride 20 mEq tablet extended release 20 meq PO DAILY Qty: 30 RF: 11 ascorbic acid (vitamin C) 500 mg capsule 500 mg PO DAILY RF: 0 buspirone 15 mg tablet 15 mg PO TID Qty: 30 RF: 0 calcium citrate 250 mg calcium tablet 500 mg PO DAILY RF: 0 clonazepam 0.5 mg tablet 0.5 mg PO BID RF: 0 cholecalciferol (vitamin D3) 400 unit capsule 800 units PO QPM RF: 0 pantoprazole 40 mg tablet,delayed release (DR/EC) 40 mg PO DAILYBB RF: 0 sertraline 50 mg Tablet 150 mg PO QAM RF: 0 clonazepam 0.5 mg tablet 1 mg PO QPM RF: 0 cholecalciferol (vitamin D3) [Vitamin D3] 25 mcg (1,000 unit) Capsule 25 mcg PO QPM RF: 0 magnesium oxide 84.5 mg mag (140 mg) Capsule 84.5 mg PO QAM RF: 0 sertraline 100 mg tablet 100 mg PO QPM RF: 0 chlorthalidone 25 mg tablet 25 mg PO 3XWK RF: 0 simvastatin 40 mg tablet 40 mg PO QPM RF: 0 meclizine 25 mg tablet 25 mg PO TID PRN (Reason: Dizziness) RF: 0 metoprolol succinate 25 mg tablet extended release 24 hr 25 mg PO QAM RF: 0 polyethylene glycol 3350 [Miralax] 17 gram/dose Powder 17 g PO DAILY PRN (Reason: Constipation) RF: 0 Metamucil 3.4 gram/5.4 gram Powder 1 tsp PO DAILY PRN (Reason: Constipation) RF: 0 Referrals Referrals: Lola Galeas CRNP [Primary Care Provider] - Discharge Problem: Hypertension Qualifiers: Hypertension type: unspecified Qualified Code(s): I10 - Essential (primary) hypertension Lower back pain Qualifiers: Chronicity: acute Back pain laterality: midline Sciatica presence: without sciatica Qualified Code(s): M54.5 - Low back pain Spinal stenosis Qualifiers: Spinal region: lumbar Neurogenic claudication status: unspecified Qualified Code(s): M48.061 - Spinal stenosis, lumbar region without neurogenic claudication
[2020-07-29] MEDS ORDERED: SODIUM CHLORIDE 0.9% 500 ML IV SCH (15:00)
[2020-07-29 15:20] LABS: Basophils # (auto) 0.01 K/uL (0-0.2); Basophils % (auto) 0.2 %; Eosinophils # (auto) 0.07 K/uL (0-0.5); Eosinophils % (auto) 1.2 %; Hematocrit (blood only) 41.8 % (37-47); Hemoglobin 13.8 g/dL (12.0-16.0); Immature Granulocytes # (auto) 0.01 K/uL (0.00-0.02); Immature Granulocytes % (auto) 0.2 %; Lymphocytes # (auto) 1.56 K/uL (1.2-3.4); Lymphocytes % (auto) 26.6 %; Mean Corpuscular Hemoglobin 29.7 pg (25-34); Mean Corpuscular Volume 90.1 fL (80-100); Mean Platelet Volume 9.7 fL (7.4-10.4); Monocytes # (auto) 0.69 K/uL (0.11-0.59); Monocytes % (auto) 11.8 %; Neutrophils # (auto) 3.53 K/uL (1.4-6.5); Platelet Count 236 K/uL (130-400); RDW Coefficient of Variation 13.5 % (11.5-14.5); RDW Standard Deviation 44.6 fL (36.4-46.3); Red Blood Count 4.64 M/uL (4.2-5.4); White Blood Count 5.87 K/uL (4.8-10.8)
[2020-07-29 15:31] LABS: Appearance Urine Clear (Clear); Bacteria Urine Automated Negative (Negative); Bilirubin Urine Negative (Negative); Blood Urine Negative (Negative); Color Urine Yellow; Epithelial Cell Urine Auto >30 /lpf (0-5); Glucose Urine UA Negative (Negative); Ketones Urine Negative (Negative); Leukocyte Esterase Urine 1+ (Negative); Nitrite Urine Negative (Negative); Protein Urine Negative (Negative); Specific Gravity Urine 1.012 (1.000-1.030); Urobilinogen Urine Negative (Negative); pH Urine 7.5 (4.5-7.5)
[2020-07-29 15:37] LABS: Alanine Aminotransferase 30 U/L (12-78); Aspartate Aminotransferase 26 U/L (15-37); BUN Creatinine Ratio 21.1 (10-20); Blood Urea Nitrogen 16 mg/dl (7-18); Calcium 9.8 mg/dl (8.5-10.1); Carbon Dioxide 35 mmol/L (21-32); Chloride 105 mmol/L (98-107); Creatinine Clr Calc Pharmacy 54.8 ml/min; Est GFR (Non-African American) 81.1; Glucose 121 mg/dl (70-99); Potassium 3.6 mmol/L (3.5-5.1); Sodium 144 mmol/L (136-145)
[2020-07-29 15:48] LABS: Albumin Globulin Ratio 1.2 (0.9-2); Alkaline Phosphatase 37 U/L (45-117); Bilirubin,Total 0.4 mg/dl (0.2-1); Globulin 3.3 gm/dl (2.5-4.0); Total Protein 7.3 gm/dl (6.4-8.2); Troponin I < 0.015 ng/ml (0-0.045)
[2020-07-29 15:50] LABS: Calcium Oxalate Crystals Urine Present (None Prsent); RBC Urine Automated 0-4 /hpf (0-4); Renal Epithelial Cells Urine 0-5 /lpf (0-5)
[2020-07-29] MEDS ORDERED: KETOROLAC TROMETHAMINE 15 MG/ML VIAL IV STA (17:03)
--- NOTE | 2020-07-29 17:12 | XRay Report ---
XR chest 1V portable CLINICAL HISTORY: weakness COMPARISON STUDY: 07/12/2020 FINDINGS: The cardiac and mediastinal contours are normal. There is no evidence of focal pulmonary co nsolidation. There is no evidence of failure. No pleural effusions are visualized.[Surgical clips are visualized in the left axillary region. IMPRESSION: No active disease in the chest. ACT 112: Negative or not required by law. Electronically signed by: Douglas Stevenson M.D. 07/29/2020 5:10 PM
--- NOTE | 2020-07-29 17:56 | Magnetic Resonance Report ---
MRI OF THE BRAIN WITHOUT CONTRAST CLINICAL HISTORY: Leg weakness, loss of balance, possible cerebellar stroke. REMOTE HISTORY OF BREAST CARCINOMA. COMPARISON STUDY: Noncontrast head CT dated 07/23/2018 FINDINGS: Sagittal T1, axial diffusion, proton density and T2 weighted axial, coronal FLAIR, and axial T1-weigh miguel images were acquired. No intra or extra-axial mass lesions are visualized Axial diffusion-weighted images reveal no evidence of acute or subacute infarction. There is no evidence of ventricular dilatation. Proton density T2-weighted and FLAIR images reveal scattered foci of increased T2 signal within the w davin matter, likely on a small vessel basis. There are no abnormal flow voids. IMPRESSION: 1. No acute intracranial findings 2. No evidence of acute or subacute infarction 3. No evidence of intracranial mass on this noncontrast examination ACT 112: Negative or not required by law. Electronically signed by: Douglas Stevenson M.D. 07/29/2020 5:54 PM
--- NOTE | 2020-07-29 18:26 | Magnetic Resonance Report ---
MR lumbar spine wo con CLINICAL HISTORY: Low back pain. Leg weakness. Loss of coordination. Remote history of breast carcino ma. TECHNIQUE: Sagittal and axial T1, T2 and STIR images were obtained. COMPARISON STUDY: X-ray study dated 06/23/2020 OBSERVATIONS: The vertebral bodies and posterior elements appear intact. There is no abnormal bony signal present t o suggest a marrow replacement process. L1-2: No disc protrusions or extrusions. No evidence of spinal canal or neural foraminal compromise. L2-3: There is a minimal circumferential disc bulge. There is no spinal or foraminal stenosis. L3-4: There is a minimal circumferential disc bulge. There is slight flattening of the anterior theca l sac but no evidence of significant spinal or foraminal stenosis L4-5: There is a grade 1 spondylolisthesis of L4 on L5. There is a mild circumferential disc bulge. T here is facet joint arthropathy. There is moderate to severe spinal stenosis. The AP diameter of thec al sac measures 5 mm. L5-S1: Circumferential disc bulge. There is a slight triangular configuration of thecal sac but high- grade spinal stenosis is not felt to be present. There is no significant foraminal narrowing. 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 The conus medullaris and cauda equina appear normal. IMPRESSION: 1. The study is most significant for multifactorial moderate to severe L4-5 spinal stenosis. ACT 112: Negative or not required by law. Electronically signed by: Douglas Stevenson M.D. 07/29/2020 6:25 PM
[2020-07-29] MEDS ORDERED: DEXAMETHASONE SOD INJ 10 MG/ML VIAL IV ONE ×2 (19:29→19:45)
--- NOTE | 2020-07-29 20:58 | History & Physical Report ---
Date of Service July 29, 2020 Assessment & Plan (1) Bilateral leg weakness: MRI of the brain without contrast showed no acute intracranial findings, no evidence of acute or subacute infarction, and no evidence of intracranial mass on this noncontrast examination. MRI of the lumbar spine without contrast was most significant for multifactorial moderate to severe L4-5 spinal stenosis. 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 MRI of thoracic spine with contrast showed an intradural, juxta medullary mass lesion along the posterior aspect of the thoracic spinal cord extending from the T3-T4 level to the T6 level. This measures up to 1.5 cm AP by 1.4 cm transverse by 6.0 cm craniocaudal. This mass follows fat signal intensity on all provided sequences demonstrates no significant postcontrast enhancement. 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 The lipoma exerts significant mass-effect on the thoracic spinal cord, displacing and compressing it anteriorly. There is mild T2 hyperintense cord signal both superior and inferior to the mass, which may represent cord edema or myelomalacia. Her case was discussed with orthopedic spine surgery, who agreed with the recommendation to contact neurosurgery at [facility] for their opinion and possible transfer. 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 Patient symptoms did improve with administration of Decadron 10 mg IV in the ED and Toradol 15 mg IV. Plan was to continue Decadron 6 mg IV every 6 hours. Contact has been made to [facility], who accepted the patient in transfer, and will undergo definitive treatment there. Present on Admission?: Yes (3) Lumbar spinal stenosis: MRI of lumbar spine shows moderate to severe spinal stenosis at L4-5 level. Case discussed with spinal surgery here, and they agreed that this was not likely the cause of her symptoms. Present on Admission?: Yes (4) Hypertension: Continue metoprolol succinate 25 mg every morning. Hold chlorthalidone 25 mg p.o. 3 times per week and potassium chloride 20 mEq p. o. daily Present on Admission?: Yes (5) Generalized anxiety disorder: Continue sertraline, clonazepam and buspirone. Present on Admission?: Yes (6) Acid reflux: Acid reflux/pyloric stenosis- Continue pantoprazole 40 mg p.o. at breakfast Present on Admission?: Yes (7) Pyloric stenosis: See above Present on Admission?: Yes History of Present Illness Chief Complaint: The patient presents to the emergency department with complaint of 3 days of progressive bilateral lower extremity weakness, left greater than right, low back pain, and cordlike pain around her chest and around her back. Primary Care Provider: ALAN Ashton The patient is a 75-year-old female with a past medical history including gastric erosion, pyloric stenosis, low back pain, myalgias, hypercalcemia, vitamin D deficiency, generalized anxiety disorder, hiatal hernia, GERD and hyperlipidemia. She reports that 3 days ago she initially noted the cordlike pain around her chest and back, which had has improved over the past few days. She has had persistent low back pain, which has not changed. Over the past 3 days she has had lower extremity weakness, left side worse than right. Her left leg would occasionally have abnormal sensation where she would feel as if she could not control it's movement. She does report difficulty with her balance due to lack of strength in her legs while attempting to walk. She has not had any recent travels or sick exposures. She has not had these symptoms prior to 3 days ago. Allergies Allergy/AdvReac Type Severity Reaction Status Date / Time No Known Allergies Allergy Verified 07/16/20 11:26 Home Medications Medication Instructions Recorded Confirmed Type ascorbic acid (vitamin C) 500 mg 500 mg PO DAILY cap 08/15/19 07/29/20 History capsule buspirone 15 mg tablet 15 mg PO TID #30 tab 08/15/19 07/29/20 History calcium citrate 500 mg PO DAILY tab 08/15/19 07/29/20 History clonazepam 0.5 mg tablet 0.5 mg PO BID tab 08/15/19 07/29/20 History cholecalciferol (vitamin D3) 10 800 units PO QPM cap 09/18/19 07/29/20 History mcg (400 unit) capsule sumatriptan succinate 100 mg tablet 100 mg PO .COMPLEX #9 tab 12/23/19 07/29/20 Rx gabapentin 100 mg capsule 100 mg PO HS #90 cap 06/26/20 07/29/20 Rx chlorthalidone 25 mg PO 3XWK 07/12/20 07/29/20 History cholecalciferol (vitamin D3) 25 mcg PO QPM 07/12/20 07/29/20 History [Vitamin D3] magnesium oxide 84.5 mg PO QAM 07/12/20 07/29/20 History meclizine 25 mg PO TID PRN 07/12/20 07/29/20 History metoprolol succinate 25 mg PO QAM 07/12/20 07/29/20 History polyethylene glycol 3350 [Miralax] 17 g PO DAILY PRN 07/12/20 07/29/20 History psyllium husk [Metamucil] 1 tsp PO DAILY PRN 07/12/20 07/29/20 History sertraline 100 mg PO QPM 07/12/20 07/29/20 History simvastatin 40 mg PO QPM 07/12/20 07/29/20 History potassium chloride 20 mEq 20 meq PO DAILY #30 tab 07/16/20 07/29/20 Rx tablet,extended release clonazepam 1 mg PO QPM 07/29/20 07/29/20 History pantoprazole 40 mg PO DAILYBB 07/29/20 07/29/20 History sertraline 150 mg PO QAM 07/29/20 07/29/20 History Past Med/Surg History Medical History (Updated 07/30/20 @ 01:55 by Robbin Ramon MD) Abnormal sensation of lower extremity Breast cancer Generalized anxiety disorder Knee pain, right Myalgia Poor balance Sensorineural hearing loss of both ears Tachycardia Vertigo Surgical History History of breast biopsy History of cataract surgery History of chemotherapy chemotherapeutics History of hemorrhoidectomy History of hysterectomy History of lumpectomy Family History Mother Breast cancer Father Hearing loss Brother Hearing loss Other Hypertension No family history of bleeding disorder Denies family history of Ovarian cancer Prostate cancer Myocardial infarction Colorectal cancer Social History Smoking Status: Never smoker Hx Alcohol Use: No Hx Substance Use: No Preferred Language: Ugandan Communication Ability: Effective 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 Beliefs That Will Affect Care: None marital status: Current Living Situation: Spouse current occupational status: retired Feels Safe at Home: Yes Safety Concerns: Feels Safe At This Time caffeine: Yes Dental Care, Regularly: Yes Physical Activity Frequency: 3-4 Times per Week Seatbelt Use: always Sunscreen Use: Yes Assistive Devices: Walker Review of Systems Review of Systems: The patient denies palpitations, shortness of breath, dyspnea on exertion, cough, lower extremity swelling, sore throat, fevers, chills, sweats, nausea, vomiting, diarrhea , constipation, abdominal pain, pelvic pain, blood in urine or stool, dysuria, urinary frequency or urgency, lightheadedness, dizziness, headache, memory loss, loss of consciousness, rash, abnormal bruising or bleeding, focal or generalized weakness, numbness or tingling in arms , generalized arthralgias or myalgias, neck pain, or night sweats. The review of systems is otherwise negative other than for that already noted above, and at least 10 systems have been reviewed. Physical Exam Physical Exam: The patient is awake, alert and oriented 3, well developed and well nourished, normocephalic and atraumatic, lying in bed and in no acute distress. HEENT--PERRL, EOMI, mucous membranes and oropharynx normal. Neck--supple. No JVD. No bruits. Thyroid normal, trachea midline, no adenopathy. Heart--normal S1 and S2. No murmurs, rubs or gallops. Lungs--clear bilaterally, no respiratory distress, no accessory muscle use. Abdomen--normal bowel sounds and soft. Nontender. Nondistended, no hernias or masses, no organomegaly. Extremities--no cyanosis or clubbing. No edema. There are good distal pulses b/l. Dermatologic--normal skin turgor, normal color, no abnormal lymph nodes, no rash. Neurologic--cranial nerves II through XII grossly intact. Patient reports improvement after IV Decadron and IV Toradol Rheumatologic--normal range of motion. Patient reports improvement after IV Decadron and IV Toradol Psychiatric--normal affect. Results & Data Results & Data ([facility]) Vital Signs (Past 12 Hours) Vital Signs Temp Pulse Pulse Resp BP BP Pulse Ox 07/29/20 19:31 98 H 92 H 20 135/99 135/99 94 07/29/20 18:34 98 H 23 162/139 H 96 07/29/20 18:25 95 H 20 175/108 H 94 07/29/20 18:24 99 H 12 07/29/20 16:14 158/87 H 98 07/29/20 16:13 95 H 18 158/87 H 97 07/29/20 16:00 100 H 17 07/29/20 15:31 89 20 154/94 H 96 07/29/20 15:30 90 19 90 07/29/20 15:27 91 H 20 96 07/29/20 15:11 90 20 147/87 H 94 07/29/20 15:10 89 22 147/87 H 97 07/29/20 15:08 89 20 96 07/29/20 14:19 99.0 F 93 H 20 151/86 H 97 Laboratory Results Laboratory Results WBC 5.87 K/uL (4.8-10.8) 07/29/20 15:10 RBC 4.64 M/uL (4.2-5.4) 07/29/20 15:10 Hgb 13.8 g/dL (12.0-16.0) 07/29/20 15:10 Hct 41.8 % (37-47) 07/29/20 15:10 MCV 90.1 fL (80-100) 07/29/20 15:10 MCH 29.7 pg (25-34) 07/29/20 15:10 MCHC 33.0 g/dL (32-36) 07/29/20 15:10 RDW Std Deviation 44.6 fL (36.4-46.3) 07/29/20 15:10 RDW Coeff of Sydni 13.5 % (11.5-14.5) 07/29/20 15:10 Plt Count 236 K/uL (130-400) 07/29/20 15:10 MPV 9.7 fL (7.4-10.4) 07/29/20 15:10 Immature Gran % (Auto) 0.2 % 07/29/20 15:10 Neut % (Auto) 60.0 % 07/29/20 15:10 Lymph % (Auto) 26.6 % 07/29/20 15:10 Becker % (Auto) 11.8 % 07/29/20 15:10 Eos % (Auto) 1.2 % 07/29/20 15:10 Baso % (Auto) 0.2 % 07/29/20 15:10 Neut # (Auto) 3.53 K/uL (1.4-6.5) 07/29/20 15:10 Lymph # (Auto) 1.56 K/uL (1.2-3.4) 07/29/20 15:10 Becker # (Auto) 0.69 K/uL (0.11-0.59) H 07/29/20 15:10 Eos # (Auto) 0.07 K/uL (0-0.5) 07/29/20 15:10 Baso # (Auto) 0.01 K/uL (0-0.2) 07/29/20 15:10 Immature Gran # (Auto) 0.01 K/uL (0.00-0.02) 07/29/20 15:10 Sodium 144 mmol/L (136-145) 07/29/20 15:10 Potassium 3.6 mmol/L (3.5-5.1) 07/29/20 15:10 Chloride 105 mmol/L (98-107) 07/29/20 15:10 Carbon Dioxide 35 mmol/L (21-32) H 07/29/20 15:10 Anion Gap 4.0 (3-11) 07/29/20 15:10 BUN 16 mg/dl (7-18) 07/29/20 15:10 Creatinine 0.73 mg/dl (0.6-1.2) 07/29/20 15:10 Est Cr Clr Drug Dosing 54.8 ml/min 07/29/20 15:10 Est GFR ( Amer) 94.0 07/29/20 15:10 Est GFR (Non-Af Amer) 81.1 07/29/20 15:10 BUN/Creatinine Ratio 21.1 (10-20) H 07/29/20 15:10 Glucose 121 mg/dl (70-99) H 07/29/20 15:10 Calcium 9.8 mg/dl (8.5-10.1) 07/29/20 15:10 Phosphorus 2.8 mg/dl (2.5-4.9) 07/29/20 15:10 Magnesium 2.0 mg/dl (1.8-2.4) 07/29/20 15:10 Total Bilirubin 0.4 mg/dl (0.2-1) 07/29/20 15:10 AST 26 U/L (15-37) 07/29/20 15:10 ALT 30 U/L (12-78) 07/29/20 15:10 Alkaline Phosphatase 37 U/L (45-117) L 07/29/20 15:10 Troponin I < 0.015 ng/ml (0-0.045) 07/29/20 15:10 Total Protein 7.3 gm/dl (6.4-8.2) 07/29/20 15:10 Albumin 4.0 gm/dl (3.4-5.0) 07/29/20 15:10 Globulin 3.3 gm/dl (2.5-4.0) 07/29/20 15:10 Albumin/Globulin Ratio 1.2 (0.9-2) 07/29/20 15:10 TSH 1.100 uIu/ml (0.300-4.500) 07/29/20 15:10 Urine Color Yellow 07/29/20 15:06 Urine Appearance Clear (Clear) 07/29/20 15:06 Urine pH 7.5 (4.5-7.5) 07/29/20 15:06 Ur Specific Avalon 1.012 (1.000-1.030) 07/29/20 15:06 Urine Protein Negative (Negative) 07/29/20 15:06 Urine Glucose (UA) Negative (Negative) 07/29/20 15:06 Urine Ketones Negative (Negative) 07/29/20 15:06 Urine Blood Negative (Negative) 07/29/20 15:06 Urine Nitrite Negative (Negative) 07/29/20 15:06 Urine Bilirubin Negative (Negative) 07/29/20 15:06 Urine Urobilinogen Negative (Negative) 07/29/20 15:06 Ur Leukocyte Esterase 1+ (Negative) H 07/29/20 15:06 Urine WBC (Auto) 1-5 /hpf (0-5) 07/29/20 15:06 Urine RBC (Auto) 0-4 /hpf (0-4) 07/29/20 15:06 U Hyaline Cast (Auto) 1-5 /lpf (0-5) 07/29/20 15:06 U Epithel Cells (Auto) >30 /lpf (0-5) H 07/29/20 15:06 Urine Bacteria (Auto) Negative (Negative) 07/29/20 15:06 Ur Renal Epithelial Cell 0-5 /lpf (0-5) 07/29/20 15:06 Calcium Oxalate Crystal Present (None Prsent) A 07/29/20 15:06 SARS-CoV-2 Ag (Rapid) Negative (Negative) 07/29/20 Unknown Diagnostic Findings [facility], [phone] XRay Report Patient: Cecilia THOMPSON Date: 07/29/20MR#: [id number]: DRAcct ID:[id number]: Date: 1945[facility] Zip: [place], [place] [address]Uri: 75Location: EDSex: FRoom/Bed:Att Phy:Diagnosis: BACK PAIN/LEG WEAKNESSPri Phy: Lola Galeas CRNPService Date: 07/29/20Fam Phy:Interpreting Phy: Douglas Stevenson [facility] Phy: Ordering Phy: Jose Dickey M.D. cc: ~ XR chest 1V portable CLINICAL HISTORY: weakness COMPARISON STUDY: 07/12/2020 FINDINGS: The cardiac and mediastinal contours are normal. There is no evidence of focal pulmonary consolidation. There is no evidence of failure. No pleural effusions are visualized.[Surgical clips are visualized in the left axillary region. IMPRESSION: No active disease in the chest. ACT 112: Negative or not required by law. Electronically signed by: Douglas Stevenson M.D. 07/29/2020 5:10 PM Dictated: 07/29/201708Transcribed: 07/29/201708 [facility], [phone] Magnetic Resonance Report Patient: Cecilia THOMPSON Date: 07/29/20MR#: [id number]: DRAcct ID:[id number]: Date: 1945[facility] Zip: [place], [place] [address]Oqh: [id number]: EDSex: FRoom/Bed:Att Phy:Diagnosis: BACK PAIN/LEG WEAKNESSPri Phy: Lola Galeas CRNPService Date: 07/29/20 Phy:Interpreting Phy: Douglas Stevenson [facility] Phy: Ordering Phy: Jose Dickey M.D. cc: ~ MRI OF THE BRAIN WITHOUT CONTRAST CLINICAL HISTORY: Leg weakness, loss of balance, possible cerebellar stroke. REMOTE HISTORY OF BREAST CARCINOMA. COMPARISON STUDY: Noncontrast head CT dated 07/23/2018 FINDINGS: Sagittal T1, axial diffusion, proton density and T2 weighted axial, coronal FLAIR, and axial T1-weighted images were acquired. No intra or extra-axial mass lesions are visualized Axial diffusion-weighted images reveal no evidence of acute or subacute infarction. There is no evidence of ventricular dilatation. Proton density T2-weighted and FLAIR images reveal scattered foci of increased T2 signal within the white matter, likely on a small vessel basis. There are no abnormal flow voids. IMPRESSION: 1. No acute intracranial findings 2. No evidence of acute or subacute infarction 3. No evidence of intracranial mass on this noncontrast examination ACT 112: Negative or not required by law. Electronically signed by: Douglas Stevenson M.D. 07/29/2020 5:54 PM Dictated: 07/29/201751Transcribed: 07/29/201751 [facility], [phone] Magnetic Resonance Report Patient: Cecilia THOMPSON Date: 07/29/20#: [id number]: [id number] DRAcct ID:[id number]: [facility] Zip[facility] [place], [place] [address]Fvp: 75Location: EDSex: FRoom/Bed:Att Phy:Diagnosis: BACK PAIN/LEG WEAKNESSPri Phy: Lola Galeas CRNPService Date: 07/29/20 Phy:Interpreting Phy: Douglas Stevenson [facility] Phy: Ordering Phy: Jose Dickey M.D. cc: ~ MR lumbar spine wo con CLINICAL HISTORY: Low back pain. Leg weakness. Loss of coordination. Remote history of breast carcinoma. TECHNIQUE: Sagittal and axial T1, T2 and STIR images were obtained. COMPARISON STUDY: X-ray study dated 06/23/2020 OBSERVATIONS: The vertebral bodies and posterior elements appear intact. There is no abnormal bony signal present to suggest a marrow replacement process. L1-2: No disc protrusions or extrusions. No evidence of spinal canal or neural foraminal compromise. L2-3: There is a minimal circumferential disc bulge. There is no spinal or foraminal stenosis. L3-4: There is a minimal circumferential disc bulge. There is slight flattening of the anterior thecal sac but no evidence of significant spinal or foraminal stenosis L4-5: There is a grade 1 spondylolisthesis of L4 on L5. There is a mild circumferential disc bulge. There is facet joint arthropathy. There is moderate to severe spinal stenosis. The AP diameter of thecal sac measures 5 mm. L5-S1: Circumferential disc bulge. There is a slight triangular configuration of thecal sac but high-grade spinal stenosis is not felt to be present. There is no significant foraminal narrowing. 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 The conus medullaris and cauda equina appear normal. IMPRESSION: 1. The study is most significant for multifactorial moderate to severe L4-5 sp inal stenosis. ACT 112: Negative or not required by law. Electronically signed by: Douglas Stevenson M.D. 07/29/2020 6:25 PM Dictated: 07/29/201820Transcribed: 07/29/201820 [facility] Patient: SHARON THOMPSON (Female) : 47 Status: ER Date: 07/29/20 21:44 Room #: History: LE WEAKNESS, DIZZINESS AND LOSS OF COORDINATION. PT. HAD AN ENDOSCOPY EARYL THIS MORNING. MRI BRAIN AND LUMBAR DONE EARLIER THIS AFTERNOON. Slices: 206 Priors: Tech: Lavinia Amaya @ [phone] Exams: MRI C SPINE Contrast: Accession Numbers: [id number] Preliminary Findings Only See Final Report For Complete Findings MRI C SPINE : There is a partially imaged intradural, juxta medullary lipoma posterior to the thoracic spinal cord beginning at the T3 level and extending caudally below the field of view. This exerts mass-effect on the thoracic spinal cord (series 2, series 3, image 6). Normal vertebral body height and alignment. No acute fracture or subluxation. No cervical spine cord edema or cord signal abnormalities. Mild multilevel degenerative changes. No high-grade spinal canal or foraminal narrowing in the cervical spine. Radiologist: Estella Beach M.D. Study ready at 21:46 and initial results transmitted at 21:54 Communications: Clear Time Type Notes 07/29/20 21:53 Call From [facility] MRI *This report constitutes a preliminary interpretation only. Non-acute findings felt to be unrelated to the clinical presentation may not be discussed in this report. The study will be interpreted and a final report will be generated by the local Radiologist the following shift. To reach the the [facility] radiology department call [phone]. If a discrepancy is found between the preliminary and final interpretations of this study, please notify us via our Client Portal at [email or web address].You can also fax this report with a description of the discrepancy, or include the final report, to our daytime fax number [phone].If faxing, please indicate the severity of discrepancy using one of the following categories: [ ] 1 - Agree/Informational [ ] 2 - Unlikely to Affect Management [ ] 3 - Possible Eventual Change of Management [ ] 4 - Probable Immediate Change of Management For all other patient related information, please fax us at [phone]. [id number] [facility] Patient: SHARON THOMPSON (Female) : 47 Status: ER Date: 07/29/20 22:17 Room #: History: B/L LEG WEAKNESS AND LOSS OF COORDINATION C/O BACK PAIN NO TRAUMA SPOKE TO DR. BEACH TO ASK IF CONTRAST WOULD BE PREFERRED. POSSIBLE LIPOMA 6CC GADAVIST INJ. RIGHT IV AT 2200 HRS. BY AEF. Slices: 238 Priors: Tech: Lavinia Amaya @ [phone] Exams: MRI T SPINE Contrast: IV Amt: 6CC GADAVIST Accession Numbers: [id number] Preliminary Findings Only See Final Report For Complete Findings MRI T SPINE : Intradural, juxtamedullary mass lesion along the posterior aspect of the thoracic spinal cord extending from the T3-T4 level to the T6 level. This measures up to 1.5 cm AP x 1.4 cm transverse x 6.0 cm craniocaudal. This mass follows fat signal intensity on all provided sequences and demonstrates no significant postcontrast enhancement. 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 The lipoma exerts significant mass-effect on the thoracic spinal cord, displacing and compressing it anteriorly. There is mild T2 hyperintense cord signal both superior and inferior to the mass, which may represent cord edema or myelomalacia. No acute fracture or subluxation. Mild multilevel degenerative disc disease. Multiple vertebral body hemangiomas. Indeterminate 3 cm lesion in the left kidney which does not follow expected signal characteristics of a simple cyst. Consider renal ultrasound as an initial further evaluation. Radiologist: Estella Beach M.D. Study ready at 22:18 and initial results transmitted at 22:27 *This report constitutes a preliminary interpretation only. Non-acute findings felt to be unrelated to the clinical presentation may not be discussed in this report. The study will be interpreted and a final report will be generated by the local Radiologist the following shift. To reach the hospital radiology department call [phone]. If a discrepancy is found between the preliminary and final interpretations of this study, please notify us via our Client Portal at [email or web address].You can also fax this report with a description of the discrepancy, or include the final report, to our daytime fax number [phone].If faxing, please indicate the severity of discrepancy using one of the following categories: [ ] 1 - Agree/Informational [ ] 2 - Unlikely to Affect Management [ ] 3 - Possible Eventual Change of Management [ ] 4 - Probable Immediate Change of Management For all other patient related information, please fax us at [phone]. [id number] Code Status & VTE Plan Code Status Full code VTE Prophylaxis Plan VTE Prophylaxis will be ordered: Yes PG Care Time/CCT Total # of Minutes Spent Total Time Spent with Patient: Total time spent is greater than 50% in coordination of care (as documented) at patient's floor/unit and/or counseling patient: Coding Level of Care Code 89931 Initial Inpt Care Lvl 3 Diagnoses Bilateral leg weakness R29.898 Thoracic spine tumor D49.2 Lumbar spinal stenosis M48.061 Hypertension I10 Hypertension type: unspecified Generalized anxiety disorder F41.1 Acid reflux K21.9 Pyloric stenosis K31.1 (1) Hypertension Hypertension type: unspecified Qualified Code(s): I10 - Essential (primary) hypertension
[2020-07-29] MEDS ORDERED: GADOBUTROL 65ML VIAL IV ONE (21:59)
--- NOTE | 2020-07-29 22:08 | Electrocardiogram Report ---
Test Reason : Blood Pressure : / mmHG Vent. Rate : 088 BPM Atrial Rate : 088 BPM P-R Int : 162 ms QRS Dur : 074 ms QT Int : 362 ms P-R-T Axes : 066 -59 038 degrees QTc Int : 438 ms Normal sinus rhythm Left anterior fascicular block Abnormal ECG When compared with ECG of 12-JUL-2020 04:27, No significant change was found Confirmed by Juan Luis Botello ([id number]) on 07/29/2020 10:08:09 PM Referred By: REFERRED SELF Confirmed By:Juan Luis Botello
[2020-07-29] MEDS ORDERED: CHOLECALCIFEROL 400 UNITS 10 MCG TAB PO SCH (23:15)
[2020-07-29] MEDS ORDERED: CHOLECALCIFEROL 1,000 UNITS 25 MCG TAB PO SCH (23:27)
[2020-07-29] MEDS ORDERED: clonazePAM 0.5 MG TAB PO SCH (23:27)
[2020-07-29] MEDS ORDERED: ONDANSETRON INJ 2 MG/ML 2 ML VIAL IV PRN (23:27)
[2020-07-29] MEDS ORDERED: POLYETHYLENE (MIRALAX) 17 GM PACK PO PRN (23:27)
[2020-07-29] MEDS ORDERED: SUMAtriptan succinate 100 MG TAB PO PRN (23:27)
[2020-07-29] MEDS ORDERED: SIMVASTATIN 40 MG TAB PO SCH (23:27)
[2020-07-29] MEDS ORDERED: HEPARIN SOD 5,000 UNIT/0.5 ML VIAL SQ SCH (23:27)
[2020-07-29] MEDS ORDERED: ACETAMINOPHEN 325 MG TAB PO PRN (23:27)
[2020-07-29] MEDS ORDERED: clonazePAM 1 MG TAB PO SCH (23:27)
[2020-07-29] MEDS ORDERED: SERTRALINE HCL 100 MG TABLET PO SCH (23:27)
[2020-07-29] MEDS ORDERED: GABAPENTIN 100 MG CAP PO SCH (23:27)
[2020-07-29] MEDS ORDERED: MECLIZINE HCL 25 MG TAB PO PRN (23:34)
[2020-07-29] MEDS ORDERED: PSYLLIUM 58.6% POWDER PACKET PO PRN (23:40)
[2020-07-29 23:59] LABS: Phosphorus 2.8 mg/dl (2.5-4.9)
[2020-07-30] MEDS: busPIRone 15 MG TAB PO SCH ×2 (00:21→07:43)
--- NOTE | 2020-07-30 01:49 | Discharge Summary ---
Date of Service July 30, 2020 Admission HPI Per Admitting Provider The patient is a 75-year-old female with a past medical history including gastric erosion, pyloric stenosis, low back pain, myalgias, hypercalcemia, vitamin D deficiency, generalized anxiety disorder, hiatal hernia, GERD and hyperlipidemia. She reports that 3 days ago she initially noted the cordlike pain around her chest and back, which had has improved over the past few days. She has had persistent low back pain, which has not changed. Over the past 3 days she has had lower extremity weakness, left side worse than right. Her left leg would occasionally have abnormal sensation where she would feel as if she could not control it's movement. She does report difficulty with her balance due to lack of strength in her legs while attempting to walk. She has not had any recent travels or sick exposures. She has not had these symptoms prior to 3 days ago. Admission Exam Per Admitting Provider The patient is awake, alert and oriented 3, well developed and well nourished, normocephalic and atraumatic, lying in bed and in no acute distress. HEENT--PERRL, EOMI, mucous membranes and oropharynx normal. Neck--supple. No JVD. No bruits. Thyroid normal, trachea midline, no adenopathy. Heart--normal S1 and S2. No murmurs, rubs or gallops. Lungs--clear bilaterally, no respiratory distress, no accessory muscle use. Abdomen--normal bowel sounds and soft. Nontender. Nondistended, no hernias or masses, no organomegaly. Extremities--no cyanosis or clubbing. No edema. There are good distal pulses b/l. Dermatologic--normal skin turgor, normal color, no abnormal lymph nodes, no rash. Neurologic--cranial nerves II through XII grossly intact. Patient reports improvement after IV Decadron and IV Toradol Rheumatologic--normal range of motion. Patient reports improvement after IV Decadron and IV Toradol Psychiatric--normal affect. Principal Diagnosis Lipoma of thoracic spine Discharge Exam Pt lying in bed sleeping and in no acute distress. HEENT-NC/AT Neck-supple. Heart-normal S1 and S2. No murmurs, rubs or gallops. Lungs-clear bilaterally, no respiratory distress, no accessory muscle use. Abdomen-normal bowel sounds and soft. Nontender. Extremities- No edema. Dermatologic-no rash. Neurologic-pt resting comfortably, moves lower extremities to touch Psych-couldnt be determined, asleep. Discharge Data Allergies Allergy/AdvReac Type Severity Reaction Status Date / Time No Known Allergies Allergy Verified 07/16/20 11:26 Consultations 07/29/20 19:29 ED Decision to Admit Stat 07/29/20 23:27 Consult Case Management - Discharge Planning Routine Consult Neurology Routine Ordered Studies 07/29/20 15:12 MR brain wo con Stat MR lumbar spine wo con Stat 07/29/20 20:53 MR thoracic spine wo/w con Stat 07/29/20 20:53 MR cervical spine wo con Stat Hospital Course (1) Bilateral leg weakness: Pt is a 75yo female with a PMHx significant for lumbar spinal stenosis who presented today with concern for lower extremity "clumsiness" for the last 3 days, Left leg> right, and affecting balance. Associated with lower back pain. MRI of the thoracic spine noted an "intradural juxtamedullary mass lesion" consistent with a lipoma extending from T3/T4-T6 and measuring 1.5cm x 1.4cm x 6.0cm. It was noted that the mass was compressing the thoracic cord and displacing it anteriorly. Pt was treated with 10mg of IV Decadron and 15mg of IV Toradol with temporary resolution of her symptoms. She was transferred to [facility] for further evaluation by neurosurgery. (2) Spinal stenosis: (3) Lower back pain: (4) Hypertension: Total Time Total Time Spent Total Time Spent (In Minutes): See attending attestation Discharge Plan Discharge Items Patient Disposition: Transfer Acute Care Hospital Reason For Visit: LE VANES, BACK PAIN Discharge Diagnosis: Mass on thoracic spine Condition on Discharge: Fair Activity: Per Instructions section Non-emergency contact: Primary Care Provider Call non-emergency contact if: your symptoms worsen, your pain is not controlled, your pain is worsening and you have a fever Follow-up/Referrals: Lola Galeas CRNP [Primary Care Provider] - Diet: Regular Addtl Attending Provider Instructions: Pt is a 75yo female with a PMHx significant for lumbar spinal stenosis who presented today with concern for lower extremity "clumsiness" for the last 3 days, Left leg> right, and affecting balance. Associated with lower back pain. MRI of the thoracic spine noted an "intradural juxtamedullary mass lesion" consistent with a lipoma extending from T3/T4-T6 and measuring 1.5cm x 1.4cm x 6.0cm. It was noted that the mass was compressing the thoracic cord and disp lacing it anteriorly. Pt was treated with 10mg of IV Decadron and 15mg of IV Toradol with temporary resolution of her symptoms. She was transferred to [facility] for further evaluation by neurosurgery. Pending Studies at Discharge: No Stand-Alone Forms: [facility] Skilled Items Patient informed of condition?: Yes DNR: No Discharge Level of Care: Other Communicable Disease: No Discharge Prognosis: Stable Lines: None Urinary Catheter: No Medications and DC Order Prescriptions: Continued sumatriptan succinate 100 mg tablet 100 mg PO .COMPLEX Qty: 9 RF: 3 gabapentin 100 mg capsule 100 mg PO HS Qty: 90 RF: 1 potassium chloride 20 mEq tablet extended release 20 meq PO DAILY Qty: 30 RF: 11 ascorbic acid (vitamin C) 500 mg capsule 500 mg PO DAILY RF: 0 buspirone 15 mg tablet 15 mg PO TID Qty: 30 RF: 0 calcium citrate 250 mg calcium tablet 500 mg PO DAILY RF: 0 clonazepam 0.5 mg tablet 0.5 mg PO BID RF: 0 cholecalciferol (vitamin D3) 400 unit capsule 800 units PO QPM RF: 0 pantoprazole 40 mg tablet,delayed release (DR/EC) 40 mg PO DAILYBB RF: 0 sertraline 50 mg Tablet 150 mg PO QAM RF: 0 clonazepam 0.5 mg tablet 1 mg PO QPM RF: 0 cholecalciferol (vitamin D3) [Vitamin D3] 25 mcg (1,000 unit) Capsule 25 mcg PO QPM RF: 0 magnesium oxide 84.5 mg mag (140 mg) Capsule 84.5 mg PO QAM RF: 0 sertraline 100 mg tablet 100 mg PO QPM RF: 0 chlorthalidone 25 mg tablet 25 mg PO 3XWK RF: 0 simvastatin 40 mg tablet 40 mg PO QPM RF: 0 meclizine 25 mg tablet 25 mg PO TID PRN (Reason: Dizziness) RF: 0 metoprolol succinate 25 mg tablet extended release 24 hr 25 mg PO QAM RF: 0 polyethylene glycol 3350 [Miralax] 17 gram/dose Powder 17 g PO DAILY PRN (Reason: Constipation) RF: 0 Metamucil 3.4 gram/5.4 gram Powder 1 tsp PO DAILY PRN (Reason: Constipation) RF: 0 Discharge Orders: Discharge Order (Routine); Ordered 07/30/20 Ordered By: Selam Apple Admission Data Admit Date/Time: 07/29/20 20:53 Attending Provider: Robbin Ramon Admit Provider: Robbin Ramon Primary Care Provider: Lola Galeas Other Providers: Robbin Ramon ; Kai Medina Resident Activity Tracking Resident Involvement: Resident Care Provided Care Provided: Adult Hospital Medicine
--- NOTE | 2020-07-30 02:25 | Billing Data ---
Date of Service July 30, 2020 Coding Level of Care Code D/C Day Management >30 mins
[2020-07-30] MEDS ORDERED: dexAMETHasone 6 MG in SYRINGE 0 ML IV SCH (04:00)
[2020-07-30] MEDS ORDERED: PANTOprazole 40 MG TAB PO SCH (06:30)
[2020-07-30 07:04] LABS: Hematocrit (blood only) 39.3 % (37-47); Hemoglobin 13.1 g/dL (12.0-16.0); Immature Granulocytes # (auto) 0.01 K/uL (0.00-0.02); Immature Granulocytes % (auto) 0.1 %; Lymphocytes # (auto) 1.19 K/uL (1.2-3.4); Lymphocytes % (auto) 14.5 %; Mean Corpuscular Hemoglobin 29.7 pg (25-34); Mean Corpuscular Hgb Conc 33.3 g/dL (32-36); Mean Corpuscular Volume 89.1 fL (80-100); Mean Platelet Volume 10.1 fL (7.4-10.4); Monocytes # (auto) 0.05 K/uL (0.11-0.59); Monocytes % (auto) 0.6 %; Neutrophils # (auto) 6.95 K/uL (1.4-6.5); Neutrophils % (auto) 84.8 %; Platelet Count 249 K/uL (130-400); RDW Coefficient of Variation 13.5 % (11.5-14.5); RDW Standard Deviation 44.1 fL (36.4-46.3); Red Blood Count 4.41 M/uL (4.2-5.4)
[2020-07-30 07:31] LABS: Albumin Level 3.7 gm/dl (3.4-5.0); BUN Creatinine Ratio 27.8 (10-20); Calcium 9.4 mg/dl (8.5-10.1); Creatinine Clr Calc Pharmacy 53.7 ml/min; Est GFR (African American) 100.9; Magnesium 2.1 mg/dl (1.8-2.4); Potassium 3.8 mmol/L (3.5-5.1)
[2020-07-30 07:33] LABS: Albumin Globulin Ratio 1.1 (0.9-2); Bilirubin,Total 0.4 mg/dl (0.2-1); Globulin 3.3 gm/dl (2.5-4.0); Phosphorus 2.9 mg/dl (2.5-4.9)
[2020-07-30] MEDS ORDERED: clonazePAM 0.5 MG TAB PO ONE (07:36)
--- NOTE | 2020-07-30 08:26 | Magnetic Resonance Report ---
MR thoracic spine wo/w con CLINICAL HISTORY: Left extremity weakness. COMPARISON STUDY: X-ray study dated 10/13/2016, chest CT scan performed June 2015 FINDINGS: Images were obtained in the axial and sagittal planes, before and after the administration of 6 cc of intravenous Gadavist. There are no suspicious areas of marrow replacement. There are a few incidental vertebral body kip iomas. There is a T1 bright intraspinal mass extending from the T3-4 level to the mid T6 level. This measure s 45 x 13 x 9 mm. This is consistent with lipoma. This appears to have both a intradural juxtamedulla ry location as well as a probable intramedullary component. Anteriorly within the lesion, there are f oci of decreased T2 signal, likely representing calcifications. In retrospect, this was present on a chest CT performed June 2015. There is mild T2 edema within the spinal cord both superior and infe rior to this lesion. There are multilevel degenerative changes. There is a 3.5 cm left renal mass suspicious for a renal cell carcinoma. Dedicated renal imaging is r ecommended in follow-up. IMPRESSION: 1. 45 x 13 x 9 mm intraspinal mass extending from the T3-4 level to the mid T6 level. This is consist ent with a lipoma. The lesion appears to have both an intradural juxtamedullary location as well as a probable intramedullary component. There is secondary cord deformity. Areas of presumed calcificatio n are present anteriorly within the lesion. In retrospect, this lesion was present on the chest CT pe rformed June 2015 2. 3.5 cm left renal mass, suspicious for renal cell carcinoma. Dedicated renal imaging is recommende d in follow-up. ACT 112: Positive. There are findings on this exam that require communication between the performing entity and the patient following Patient Test Result Information Act ([place] Act 112) guidelines. Electronically signed by: Douglas Stevenson M.D. 07/30/2020 8:25 AM
[2020-07-30] MEDS ORDERED: METOPROLOL SUCC 25MG EXT REL TAB PO SCH (09:00)
[2020-07-30] MEDS ORDERED: clonazePAM 0.5 MG TAB PO SCH (09:00)
[2020-07-30] MEDS ORDERED: MAGNESIUM OXIDE 400 MG TAB PO SCH (09:00)
[2020-07-30] MEDS ORDERED: ASCORBIC ACID 500 MG TAB PO SCH (09:00)
[2020-07-30] MEDS ORDERED: CALCIUM CITRATE 950 MG TAB PO SCH (09:00)
[2020-07-30] MEDS ORDERED: SERTRALINE HCL 50 MG TABLET PO SCH (09:00)
[2020-07-30] MEDS ORDERED: POTASSIUM CHLORIDE CRTAB 20 MEQ TABCR PO SCH (09:00)
--- NOTE | 2020-07-30 09:24 | Magnetic Resonance Report ---
MR cervical spine wo con HISTORY: 75 years-old Female LE weakness, patient complains of acute upper and lower extremity weakn ess. COMPARISON: MRI of thoracic spine of same day TECHNIQUE: Multiplanar multisequence MRI of the cervical spine was obtained without the use of IV con trast. FINDINGS: [employer] localizer images demonstrate no gross extraspinal abnormality. The imaged posterior fossa struc tures are unremarkable. There is normal signal within the brainstem and cervical spinal cord. There i s a partially imaged lipoma of the central canal appears to be intradural causing severe central aundrea l stenosis and deformity of the thoracic spinal cord at T3-T4 and T4-T5 extending inferiorly below th e [id number]. There is no acute fracture, subluxation, bone marrow or soft tissue edema. 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 C2-C3: Uncovertebral spurring with moderate facet arthrosis. No central canal or foraminal narrowing. C3-C4: Mild intervertebral disc space narrowing. Spurring and posterior annular disc bulge with centr al disc protrusion measuring 4 x 3 mm on image 31 series 4. This flattens the ventral thecal sac and abuts the ventral aspect of the cervical spinal cord with moderate facet arthrosis. No significant ce ntral canal stenosis. The left neuroforamen is patent. Mild right foraminal narrowing. C4-C5: Mild intervertebral disc space narrowing with uncovertebral spurring and posterior disc osteop hyte complex with moderate facet arthrosis. Flattening of the ventral thecal sac without significant central canal or foraminal narrowing. C5-C6: Uncovertebral spurring with small posterior disc osteophyte complex. Moderate facet arthrosis. Flattening of the ventral thecal sac without significant central canal stenosis. Right neuroforamen is patent. Mild left foraminal narrowing. C6-C7: Mild intervertebral disc space narrowing with uncovertebral spurring and small posterior disc osteophyte complex. Moderate facet arthrosis. Flattening of the ventral thecal sac without significan t central canal stenosis. Mild to moderate bilateral foraminal narrowing. C7-T1: Uncovertebral spurring with moderate facet arthrosis. No central canal or foraminal narrowing. IMPRESSION: 1. Partially imaged lipoma of the central canal of the upper thoracic spine, which appears to be intr adural causes marked deformity and severe central canal stenosis at T3-T4 and T4-T5. Please refer to MRI thoracic spine study of same day for additional findings. 2. Multilevel discogenic degeneration and facet arthrosis as detailed above without high-grade centra l canal or foraminal narrowing. 3. No acute fracture, subluxation or bone marrow edema. 4. 11 mm left-sided Tarlov cyst at T1-T2. ACT 112: Negative or not required by law. The above report was generated using voice recognition software. It may contain grammatical, syntax o r spelling errors. Electronically signed by: John Coe M.D. 07/30/2020 9:23 AM
--- NOTE | 2020-07-30 09:37 | Neurology Consultation ---
Date of Consultation July 30, 2020 History of Present Illness Attending Physician: Robbin Ramon MD History of Present Illness Patient discharged/transferred prior to being evaluated by me. Allergies Allergy/AdvReac Type Severity Reaction Status Date / Time No Known Allergies Allergy Verified 07/16/20 11:26 Home Medications Medication Instructions Recorded Confirmed Type ascorbic acid (vitamin C) 500 mg 500 mg PO DAILY cap 08/15/19 07/29/20 History capsule buspirone 15 mg tablet 15 mg PO TID #30 tab 08/15/19 07/29/20 History calcium citrate 500 mg PO DAILY tab 08/15/19 07/29/20 History clonazepam 0.5 mg tablet 0.5 mg PO BID tab 08/15/19 07/29/20 History cholecalciferol (vitamin D3) 10 800 units PO QPM cap 09/18/19 07/29/20 History mcg (400 unit) capsule sumatriptan succinate 100 mg tablet 100 mg PO .COMPLEX #9 tab 12/23/19 07/29/20 Rx gabapentin 100 mg capsule 100 mg PO HS #90 cap 06/26/20 07/29/20 Rx Metamucil 1 tsp PO DAILY PRN 07/12/20 07/29/20 History chlorthalidone 25 mg PO 3XWK 07/12/20 07/29/20 History cholecalciferol (vitamin D3) 25 mcg PO QPM 07/12/20 07/29/20 History [Vitamin D3] magnesium oxide 84.5 mg PO QAM 07/12/20 07/29/20 History meclizine 25 mg PO TID PRN 07/12/20 07/29/20 History metoprolol succinate 25 mg PO QAM 07/12/20 07/29/20 History polyethylene glycol 3350 [Miralax] 17 g PO DAILY PRN 07/12/20 07/29/20 History sertraline 100 mg PO QPM 07/12/20 07/29/20 History simvastatin 40 mg PO QPM 07/12/20 07/29/20 History potassium chloride 20 mEq 20 meq PO DAILY #30 tab 07/16/20 07/29/20 Rx tablet,extended release clonazepam 1 mg PO QPM 07/29/20 07/29/20 History pantoprazole 40 mg PO DAILYBB 07/29/20 07/29/20 History sertraline 150 mg PO QAM 07/29/20 07/29/20 History Patient History Medical History (Updated 07/30/20 @ 01:55 by Robbin Ramon MD) Abnormal sensation of lower extremity Breast cancer Generalized anxiety disorder Knee pain, right Myalgia Poor balance Sensorineural hearing loss of both ears Tachycardia Vertigo Surgical History History of breast biopsy History of cataract surgery History of chemotherapy chemotherapeutics History of hemorrhoidectomy History of hysterectomy History of lumpectomy Family History Mother Breast cancer Father Hearing loss Brother Hearing loss Other Hypertension No family history of bleeding disorder Denies family history of Ovarian cancer Prostate cancer Myocardial infarction Colorectal cancer Social History Smoking Status: Never smoker Hx Alcohol Use: No Hx Substance Use: No Preferred Language: Croatian Communication Ability: Effective Operational Risk Consultant Required: No Beliefs That Will Affect Care: None marital status: Current Living Situation: Spouse current occupational status: retired Feels Safe at Home: Yes caffeine: Yes Dental Care, Regularly: Yes Physical Activity Frequency: 3-4 Times per Week Seatbelt Use: always Sunscreen Use: Yes Assistive Devices: Walker Results & Data ([facility]) Vital Signs (Past 12 Hours) Vital Signs Temp Pulse Resp BP Pulse Ox 07/30/20 07:21 36.2 C L 123 H 20 167/95 H 94 07/30/20 04:59 36.9 C 101 H 16 182/99 H 93 07/29/20 22:37 36.9 C 101 H 16 182/99 H 93 PG Care Time/CCT Total # of Minutes Spent Total Time Spent with Patient: Total time spent is greater than 50% in coordination of care (as documented) at patient's floor/unit and/or counseling patient: Coding Level of Care Code None
== END 2020-07-30 08:46 | disposition short-term general hospital (02) | DRG 55 ==
LOC: ED 14:04 → 2N 20:53

== ENCOUNTER 2025-01-01 13:21 | Observation (INO) ==
[2025-01-01 13:57] LABS: Basophils # (auto) 0.02 K/uL (0.00-0.20); Basophils % (auto) 0.4 %; Eosinophils # (auto) 0.06 K/uL (0.00-0.50); Eosinophils % (auto) 1.2 %; Hematocrit (blood only) 41.8 % (37.0-47.0); Hemoglobin 13.6 g/dl (12.0-16.0); Immature Granulocytes # (auto) 0.01 K/uL (0.01-0.20); Immature Granulocytes % (auto) 0.2 %; Lymphocytes # (auto) 1.55 K/uL (1.20-3.40); Lymphocytes % (auto) 31.6 %; Mean Corpuscular Hemoglobin 27.6 pg (25.0-34.0); Mean Corpuscular Hgb Conc 32.5 g/dL (32.0-36.0); Mean Corpuscular Volume 84.8 fL (80.0-100.0); Mean Platelet Volume 10.2 fL (9.4-12.4); Monocytes # (auto) 0.44 K/uL (0.11-0.59); Neutrophils # (auto) 2.82 K/uL (1.40-6.50); Neutrophils % (auto) 57.6 %; Platelet Count 151 K/uL (130-400); RDW Coefficient of Variation 14.4 % (11.5-14.5); RDW Standard Deviation 44.1 fL (36.4-46.3); Red Blood Count 4.93 M/uL (4.20-5.40)
[2025-01-01 14:21] LABS: Albumin Globulin Ratio 1.8 (0.9-2); Albumin Level 4.5 gm/dl (3.4-5.0); BUN Creatinine Ratio 21.3 (10-20); Bilirubin,Total 0.5 mg/dl (0.2-1.0); Calcium 9.2 mg/dl (8.6-10.3); Creatinine Clr Calc Pharmacy 46.4 ml/min; Globulin 2.5 gm/dl (2.5-4.0); Potassium 3.9 mmol/L (3.5-5.1)
--- NOTE | 2025-01-01 17:36 | Emergency Department Note ---
Impression & Plan Stroke-like symptoms, Injury of right vertebral artery ED Provider Note HISTORY OF PRESENT ILLNESS: Patient is a 79-year-old female presenting with dizziness. Patient follows with physical therapy for BPPV. She was seen by her physical therapist today and had disclosed to him that 3 days ago while [facility] [employer], she had an episode in which she was leaning to the left and running into things while leaning to the left. She had left-sided weakness and this leading to the left to that lasted for a number of hours. States that she went to bed Monday night and was able to wake up Monday and felt fine. She reportedly has been having episodes of dizziness and vertigo over the last 48 hours. She states that these episodes feel similar to her BPPV. However, her physical therapist took her blood pressure today and found it to be elevated at 169/128 and 176/105. PT also signs documentation that the patient had nystagmus with the Lorenza-Hallpike maneuver. PT had called the patient's primary doctor who referred the patient to the emergency department. Patient is not on any anticoagulation or antiplatelet therapy. Denies any current numbness, tingling or weakness in her extremities. Denies any headache or changes in vision. Denies any chest pain or shortness of breath. Denies any recent falls or head injuries. Denies any recent chiropractic manipulation of her neck. She has been having the Héctor maneuver performed by her PT for the last few weeks secondary to her BPPV. ROS: as above PHYSICAL EXAM: Constitutional: Patient appears in no acute distress. HENT: Head: Normocephalic and atraumatic. Eyes: EOMI, PERRL Mouth/Throat: Mucous membranes moist. Neck: Trachea midline. Neck supple. Cardiovascular: RRR, No murmurs, rubs or gallops. Intact distal pulses. Pulmonary/Chest: No respiratory distress. Breath sounds clear and equal bilaterally. No wheezes or rales. Abdominal: Abdomen soft, no tenderness, rebound or guarding. Musculoskeletal: No edema, tenderness or deformity noted. Skin: Warm and dry. No rash, erythema, pallor or cyanosis Psychiatric: Appropriate mood and affect for situation. Neurological: Alert and keenly responsive. Facies symmetric. Able to raise eyebrows, close eyes, smile, puff mouth, stick out tongue, move tongue left and right and raise palate symmetrically. Able to shrug shoulders. PERRLA. SILT to forehead below eye and at jawline. Can hear soft noise bilaterally. Strength 5/5 in bilateral upper and lower extremities. SILT throughout bilateral upper and lower extremities. MDM: - Vitals signs showed hypertension. - History obtained via patient. History as above. - Chronic conditions affecting care: HLD; HTN; lipoma of spinal cord; hx of breast cancer - Differential diagnoses include, but are not limited to: TIA; CVA; intracranial hemorrhage; ACS; dysrhythmia; electrolyte abnormality - Order placed for continuous cardiac monitoring. At this time, monitor showed rate of 64 bpm with normal sinus rhythm, per my interpretation. - External medical records reviewed. Patient presents to bedside with handwritten notes from her physical therapist. He documents multiple hypertensive episodes on his assessment today. He reports that patient has been having nausea on curative dizziness with the Héctor maneuver today. - EKG image interpreted by myself showed normal sinus rhythm. Rate bradycardic at 59 bpm. QT 426. No acute ischemic changes. - Laboratory workup interpreted by myself showed normal WBC; stable electrolytes; normal troponin - UA shows bacteria and nitritie positive. However, patient is not having a urinary complaints - CT head wo contrast negative for acute intracranial pathology. - CTA head negative for acute pathology. - CTA neck showed a "possible focal dissection of the distal right vertebral artery." - Discussed case with [facility] neurologist, Dr. Hauser, at 18:39. He recommended that telestroke with [facility] be consulted. - Discussed case with telestroke provider at [facility], Dr. Lange, at 19:04. He recommended that the patient be admitted for further stroke workup. He reports that given the patient's hours of symptoms on Monday, concern for stroke. He recommended that the patient's blood pressures remain less than 180 systolic. He recommended giving the patient a dose of 325 mg of aspirin now and then 81 mg daily starting tomorrow. He recommended Lipitor 40 mg daily. Recommended a neurology consult on the inpatient setting. Recommended obtaining an MRI of the brain to rule out CVA, and also obtaining MRI head and neck to further clarify the CT abnormality of the right vertebral artery. He also recommends obtaining an echo as part of the stroke workup. - Dysphagia screening completed by nursing staff. - Patient given 325 mg PO aspirin in ER. Given 10 mg IV labetalol for blood pressure management. - Discussion was had with case management coordinator about patient's case and need for admission - Hospitalist, Dr. Bobby, consulted for admission - [facility] ASSESSMENT AND PLAN: Diagnosis: Strokelike symptoms; right vertebral artery dissection Plan: admit Past Med/Surg History Problem List (Updated 01/01/25 @ 19:30 by Cristin Ramirez MD) Injury of right vertebral artery (Acute) Stroke-like symptoms (Acute) At risk for falling Bilateral leg weakness L>R Unsteady gait when walking Thoracic spine pain Pyloric stenosis Cognitive changes History of kidney cancer Spinal stenosis of lumbar region Postoperative back pain Radicular leg pain Generalized headaches Left leg pain History of breast cancer 1997 and 1998; left lumpectomy + chemo/radiation Lumbosacral radiculopathy at S1 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 at [facility] reoccurrence 10/26 Lumbar spinal stenosis Pyloric stenosis Myalgia (Acute) Vitamin D deficiency (Chronic) Arthritis Sensorineural hearing loss of both ears Osteoporosis (Chronic) Hypertension (Chronic) Migraine headache (Chronic) Hiatal hernia (Chronic) Generalized anxiety disorder (Chronic) Constipation (Chronic) HLD (hyperlipidemia) (Chronic) Medical History Spinal stenosis of lumbar region Cognitive changes History of kidney cancer (2021) Hiatal hernia Hypertension Hx of chest pain Hyperlipidemia Vertigo Arthritis Pyloric stenosis Hx of breast cancer (01/1998) History of COVID-19 (08/2020) PONV (postoperative nausea and vomiting) Osteoarthritis HABEMATOLEL (hard of hearing) Anxiety and depression History of migraine 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) Bilateral leg weakness Surgical History Hx of myomectomy (1979) History of lumbar surgery (04/2022) History of kidney surgery (2021) History of back surgery (07/2020) Spastic entropion (2019) S/P epidural steroid injection (08/2021) History of non-cataract eye surgery (10/2019) History of esophagogastroduodenoscopy (EGD) History of colonoscopy History of hemorrhoidectomy (1969) History of lumpectomy (03/1998) History of breast biopsy History of cataract surgery (06/2015) History of hysterectomy (1993) Family History Mother Breast cancer Father Hearing loss Brother Hearing loss Other Hypertension No family history of bleeding disorder Denies family history of Ovarian cancer Prostate cancer Myocardial infarction Colorectal cancer Social History Smoking Status: Never smoker Second Hand Exposure: Yes (As a child. ); Do You Dip or Chew Tobacco: No; Hx Alcohol Use: No Hx Substance Use: No Preferred Language: Estonian Communication Ability: Effective Visual Impairment: Limited Hearing Ability: Use of Hearing Aid Coil Inspector Required: No Beliefs That Will Affect Care: None marital status: Current Living Situation: Spouse current occupational status: retired How many Children do You have: 2 Feels Safe at Home: Yes Childhood Exposure to Second-Hand Smoke: Yes Diet: regular caffeine: Yes during the past year weight has: remained stable Dental Care, Regularly: Yes Physical Activity Frequency: Does not Exercise Seatbelt Use: always Sunscreen Use: Yes Do you think of yourself as: straight/heterosexual Sexual Activity: has been sexually active, but not for at least 12 months Gender Identity: Female Assistive Devices: Glasses and Hearing Aid - Bilateral Allergies Allergies Allergy/AdvReac Type Severity Reaction Status Date / Time No Known Drug Allergies Allergy Verified 01/01/25 19:42 Home Meds Home Medications Medication Instructions Recorded Confirmed ascorbic acid (vitamin C) 500 mg 500 mg PO QAM 08/15/19 07/29/24 capsule polyethylene glycol 3350 17 17 g PO DAILY PRN Constipation 07/12/20 07/29/24 gram/dose oral powder (Miralax) psyllium husk 3.4 gram/5.4 gram 1 tsp PO DAILY PRN Constipation 07/12/20 07/29/24 oral powder (Metamucil) sertraline 50 mg tablet 250 mg PO QAM 07/29/20 01/01/25 buspirone 10 mg tablet 20 mg PO TID 01/27/21 01/01/25 ibuprofen 200 mg tablet 400 mg PO Q6H PRN PAIN/FEVER 07/19/22 07/29/24 cholecalciferol (vitamin D3) 25 2,000 unit PO QPM 05/30/23 07/29/24 mcg (1,000 unit) capsule (Vitamin D3) clonazepam 0.5 mg tablet 0.25 mg PO TID 05/30/23 01/01/25 [id number] 250 1 tab PO QAM 03/13/24 07/29/24 mg-40 mg-5 mg-125 unit tablet acetaminophen 500 mg tablet 500 mg PO Q6H PRN 07/29/24 07/29/24 (Tylenol Extra Strength) Previous Rx's Medication Instructions Recorded gabapentin 300 mg capsule 300 mg PO BID #60 caps 09/25/23 losartan 50 mg tablet 50 mg PO BID #180 tabs 01/04/24 sumatriptan succinate 100 mg tablet 100 mg PO UD PRN Migraine Headache 02/28/24 #90 tabs metoprolol succinate 50 mg 75 mg (1.5 x 50 mg) PO PM #135 tabs 04/12/24 tablet,extended release 24 hr simvastatin 40 mg tablet 40 mg PO QPM #90 tabs 05/13/24 trazodone 50 mg tablet 25 mg (1/2 x 50 mg) PO DAILY #30 06/04/24 tabs triamcinolone acetonide 0.1 % 1 applic topical BID #80 grams 07/01/24 topical cream pantoprazole 20 mg tablet,delayed 20 mg PO BID #180 tabs 07/29/24 release denosumab 60 mg/mL subcutaneous 60 mg subcut .COMPLEX #1 mL 08/21/24 syringe (Prolia) potassium chloride 20 mEq 20 meq PO UD #120 tabs 12/30/24 tablet,extended release Results & Data (ED) Vital Signs Vital Signs - 24 hr 01/01/25 13:25 01/01/25 15:19 01/01/25 17:00 Temperature 36.7 C Temperature Source Skin Pulse Rate 67 Pulse Rate [Finger] 59 L Respiratory Rate 16 16 17 Respiratory Effort / Characteristics Non-Labored Spontaneous Non-Labored Spontaneous Non-Labored Spontaneous Respiratory Depth Normal Normal Normal Respiratory Pattern Regular Regular Regular Blood Pressure 146/88 H Blood Pressure [Left Arm] 124/105 H 186/103 H Blood Pressure Mean 107 Blood Pressure Mean [Left Arm] 111 130 Blood Pressure Position [Left Arm] Lying Lying Pulse Oximetry 94 98 96 Oxygen Delivery Method Room Air Room Air Room Air Sepsis Recent Fever Within 48 Hours No Sepsis New/Unexplained Change in Mental Status N/A Sepsis Action Taken by Nursing No Action Required 01/01/25 17:53 01/01/25 19:12 01/01/25 19:36 Temperature Temperature Source Pulse Rate 65 65 Pulse Rate [Finger] 63 Respiratory Rate 20 Respiratory Effort / Characteristics Non-Labored Spontaneous Respiratory Depth Normal Respiratory Pattern Regular Blood Pressure 195/112 H Blood Pressure [Left Arm] 184/113 H Blood Pressure Mean Blood Pressure Mean [Left Arm] 136 Blood Pressure Position [Left Arm] Semi-fowlers Pulse Oximetry 97 Oxygen Delivery Method Room Air Sepsis Recent Fever Within 48 Hours Sepsis New/Unexplained Change in Mental Status Sepsis Action Taken by Nursing Laboratory Data 01/01/25 13:40 01/01/25 13:40 Lab Results 01/01/25 01/01/25 Range/Units 13:40 18:28 WBC 4.90 (4.8-10.8) K/ul RBC 4.93 (4.20-5.40) M/uL Hgb 13.6 (12.0-16.0) g/dl Hct 41.8 (37.0-47.0) % MCV 84.8 (80.0-100.0) fL MCH 27.6 (25.0-34.0) pg MCHC 32.5 (32.0-36.0) g/dL RDW Std Deviation 44.1 (36.4-46.3) fL RDW Coeff of Sydni 14.4 (11.5-14.5) % Plt Count 151 (130-400) K/uL MPV 10.2 (9.4-12.4) fL Immature Gran % (Auto) 0.2 % Neut % (Auto) 57.6 % Lymph % (Auto) 31.6 % Moody % (Auto) 9.0 % Eos % (Auto) 1.2 % Baso % (Auto) 0.4 % Neut # (Auto) 2.82 (1.40-6.50) K/uL Lymph # (Auto) 1.55 (1.20-3.40) K/uL Moody # (Auto) 0.44 (0.11-0.59) K/uL Eos # (Auto) 0.06 (0.00-0.50) K/uL Baso # (Auto) 0.02 (0.00-0.20) K/uL Immature Gran # (Auto) 0.01 (0.01-0.20) K/uL Sodium 142 (136-145) mmol/L Potassium 3.9 (3.5-5.1) mmol/L Chloride 109 H (98-107) mmol/L Carbon Dioxide 29 (21-32) mmol/L Anion Gap 4 (3-11) BUN 17 (6-23) mg/dl Creatinine 0.80 (0.6-1.2) mg/dl Est Cr Clr Drug Dosing 46.4 ml/min eGFR 75.37 BUN/Creatinine Ratio 21.3 H (10-20) Glucose 95 (70-99(Fasting)) mg/dl Calcium 9.2 (8.6-10.3) mg/dl Total Bilirubin 0.5 (0.2-1.0) mg/dl AST 29 (13-39) U/L ALT 21 (7-52) U/L Alkaline Phosphatase 41 (34-104) U/L Troponin I High Sens 5.4 (0-14) pg/ml Total Protein 7.0 (6.0-8.3) gm/dl Albumin 4.5 (3.4-5.0) gm/dl Globulin 2.5 (2.5-4.0) gm/dl Albumin/Globulin Ratio 1.8 (0.9-2) Urine Color Yellow Urine Appearance Clear (Clear) Urine pH 7.0 (4.5-7.5) Ur Specific [place] 1.026 (1.000-1.030) Urine Protein Negative (Negative) Urine Glucose (UA) Negative (Negative) Urine Ketones Negative (Negative) Urine Blood Negative (Negative) Urine Nitrite Positive A (Negative) Urine Bilirubin Negative (Negative) Urine Urobilinogen Negative (Negative) Ur Leukocyte Esterase Negative (Negative) Urine WBC (Auto) 0-5 (0-5) /hpf Urine RBC (Auto) 0-2 (0-2) /hpf U Hyaline Cast (Auto) 0-2 (0-2) /lpf U Epithel Cells (Auto) 0-2 (0-2) /hpf Urine Bacteria (Auto) 4+ H (None Seen) Administered Medications Discontinued Medications Aspirin (Aspirin Chew 324 Mg) 324 mg PO NOW STA Stop: 01/01/25 19:23 Last Admin: 01/01/25 19:28 Dose: 324 mg Documented By: JAMAL Ioversol (Optiray 320 125ml) 115 ml IV ONCE ONE Stop: 01/01/25 17:44 Last Admin: 01/01/25 17:44 Dose: 115 ml Documented By: JOSE LUIS Labetalol HCl (Labetalol Hcl Iv 5 Mg/Ml 20ml) 10 mg IV NOW STA Stop: 01/01/25 19:31 Last Admin: 01/01/25 19:36 Dose: 10 mg Documented By: JAMAL Imaging Data Radiologist's Impression: Head CT 01/01/25 16:59 Clinical History: Left-sided weakness Technique: Axial computed tomography images were obtained of the brain without intravenous contrast. Findings: There is mild cerebral atrophy, within expected limits for the patient's age. Areas of decreased attenuation are seen within the periventricular white matter, likely representing chronic small vessel ischemic disease. There is no definite sign of acute or old infarction. No intracranial hemorrhage is evident. No definite mass lesion is seen on this noncontrast examination. There is no midline shift or other form of herniation. No hydrocephalus is seen. No fracture is identified. The orbits and the visualized paranasal sinuses appear unremarkable. The mastoid air cells appear clear. Impression: 1. Cerebral atrophy and chronic small vessel ischemic disease 2. Otherwise unremarkable noncontrast CT of the brain Electronically signed by Alcon Arevalo 01-01-2025 6:09 PM Head CTA 01/01/25 16:59 Clinical History: Left-sided weakness Technique: Axial computed tomography images were obtained of the brain after the administration of intravenous contrast according to the CT angiogram protocol Findings: There is mild calcified plaque within the cavernous and supraclinoid segments of the internal carotid arteries bilaterally, without stenosis No definite stenosis or aneurysm is seen of the anterior, middle, or posterior cerebral artery circulations. The visualized vertebral arteries and the basilar artery appear unremarkable Impression: No definite stenosis or aneurysm of the intracranial arteries Electronically signed by Alcon Arevalo 01-01-2025 6:11 PM Neck CTA 01/01/25 16:59 Technique: Axial computed tomography images were obtained of the neck after the administration of intravenous contrast according to the CT angiogram protocol Findings: No stenosis is seen of the common carotid arteries bilaterally. There is a mild stenosis of the right carotid bulb with approximately 30% diameter narrowing. The remainder of the internal carotid arteries appear patent bilaterally. No stenosis of the external carotid arteries is seen There is an atypical appearance of an approximately 6 mm long segment of the distal right vertebral artery at the level of the foramen magnum, image 277 of the thin section axial series and image 48 of the coronal reconstructions. This could be due to a focal dissection The vertebral arteries otherwise appear unremarkable with no significant stenosis seen. The visualized thoracic aorta appears unremarkable There is multilevel degenerative disc disease and osteoarthritis of the cervical spine. Impression: 1. Possible focal dissection of the distal right vertebral artery. Conventional angiography could be considered for further evaluation 2. Mild stenosis of the right carotid bulb, with approximately 30% diameter narrowing ACT 112: Positive. There are findings on this exam that require communication between the performing entity and the patient following Patient Test Result Information Act ([place] ACT 112) guidelines. Electronically signed by Alcon Arevalo 01-01-2025 6:28 PM Discharge Plan Visit Data Chief Complaint: Hypertension Stated Complaint: HIGH BP ED Provider: Cristin Ramirez Discharge Problem: Stroke-like symptoms, Injury of right vertebral artery Forms Stand Alone Forms: My [facility] Prescriptions Prescriptions: No Action gabapentin 300 mg capsule 300 mg PO BID Qty: 60 0RF losartan 50 mg tablet 50 mg PO BID Qty: 180 3RF Rx Instructions: PT TAKES TOGETHER sumatriptan succinate 100 mg tablet 100 mg PO UD PRN (Reason: Migraine Headache) Qty: 90 3RF Rx Instructions: Take 100 mg at unset of headache metoprolol succinate 50 mg tablet extended release 24 hr 75 mg PO PM Qty: 135 3RF Rx Instructions: 75 mg orally PM; dose increase,; simvastatin 40 mg tablet 40 mg PO QPM Qty: 90 3RF trazodone 50 mg tablet 25 mg PO DAILY Qty: 30 2RF Prolia 60 mg/mL syringe 60 mg subcut .COMPLEX Qty: 1 1RF Rx Instructions: 60 mg subcutaneously EVERY 6 MONTHS; potassium chloride 20 mEq tablet extended release 20 meq PO UD Qty: 120 3RF Rx Instructions: Take 20meq by mouth on Sun/Tues/Thurs/Sat and 40meq on Mon/Wed/Fri ibuprofen 200 mg tablet 400 mg PO Q6H PRN (Reason: PAIN/FEVER) ascorbic acid (vitamin C) 500 mg capsule 500 mg PO QAM triamcinolone acetonide 0.1 % cream 1 applic topical BID Qty: 80 0RF acetaminophen [Tylenol Extra Strength] 500 mg tablet 500 mg PO Q6H PRN pantoprazole 20 mg tablet,delayed release (DR/EC) 20 mg PO BID Qty: 180 3RF Rx Instructions: TAKES 40 MG BY MOUTH TWICE DAILY 30 MINUTES BEFORE MEALS sertraline 50 mg Tablet 250 mg PO QAM clonazepam 0.5 mg tablet 0.25 mg PO TID polyethylene glycol 3350 [Miralax] 17 gram/dose Powder 17 g PO DAILY PRN (Reason: Constipation) Metamucil 3.4 gram/5.4 gram Powder 1 tsp PO DAILY PRN (Reason: Constipation) cholecalciferol (vitamin D3) [Vitamin D3] 25 mcg (1,000 unit) capsule 2,000 unit PO QPM Rx Instructions: TOTAL DOSE 1800 UNITS--TAKE WITH 2-400 UNIT CAP. buspirone 10 mg Tablet 20 mg PO TID [id number] Tablet 1 tab PO QAM Referrals Referrals: Lola Galeas CRNP [Primary Care Provider] -
[2025-01-01] MEDS: OPTIRAY 320 125ml IV ONE (17:44)
[2025-01-01 17:50] LABS: Troponin I High Sensitivity 5.4 pg/ml (0-14)
--- NOTE | 2025-01-01 18:10 | CT Scan Report ---
Clinical History: Left-sided weakness Technique: Axial computed tomography images were obtained of the brain without intravenous contrast. Findings: There is mild cerebral atrophy, within expected limits for the patient's age. Areas of decreased attenuation are seen within the periventricular white matter, likely representing chronic small vessel ischemic disease. There is no definite sign of acute or old infarction. No intracranial hemorrhage is evident. No definite mass lesion is seen on this noncontrast examination. There is no midline shift or other form of herniation. No hydrocephalus is seen. No fracture is identified. The orbits and the visualized paranasal sinuses appear unremarkable. The mastoid air cells appear clear. Impression: 1. Cerebral atrophy and chronic small vessel ischemic disease 2. Otherwise unremarkable noncontrast CT of the brain Electronically signed by Alcon Arevalo 01-01-2025 6:09 PM
--- NOTE | 2025-01-01 18:11 | CT Scan Report ---
Clinical History: Left-sided weakness Technique: Axial computed tomography images were obtained of the brain after the administration of intravenous contrast according to the CT angiogram protocol Findings: There is mild calcified plaque within the cavernous and supraclinoid segments of the internal carotid arteries bilaterally, without stenosis No definite stenosis or aneurysm is seen of the anterior, middle, or posterior cerebral artery circulations. The visualized vertebral arteries and the basilar artery appear unremarkable Impression: No definite stenosis or aneurysm of the intracranial arteries Electronically signed by Alcon Arevalo 01-01-2025 6:11 PM
--- NOTE | 2025-01-01 18:28 | CT Scan Report ---
Technique: Axial computed tomography images were obtained of the neck after the administration of intravenous contrast according to the CT angiogram protocol Findings: No stenosis is seen of the common carotid arteries bilaterally. There is a mild stenosis of the right carotid bulb with approximately 30% diameter narrowing. The remainder of the internal carotid arteries appear patent bilaterally. No stenosis of the external carotid arteries is seen There is an atypical appearance of an approximately 6 mm long segment of the distal right vertebral artery at the level of the foramen magnum, image 277 of the thin section axial series and image 48 of the coronal reconstructions. This could be due to a focal dissection The vertebral arteries otherwise appear unremarkable with no significant stenosis seen. The visualized thoracic aorta appears unremarkable There is multilevel degenerative disc disease and osteoarthritis of the cervical spine. Impression: 1. Possible focal dissection of the distal right vertebral artery. Conventional angiography could be considered for further evaluation 2. Mild stenosis of the right carotid bulb, with approximately 30% diameter narrowing ACT 112: Positive. There are findings on this exam that require communication between the performing entity and the patient following Patient Test Result Information Act ([place] ACT 112) guidelines. Electronically signed by Alcon Arevalo 01-01-2025 6:28 PM
[2025-01-01 19:16] LABS: Appearance Urine Clear (Clear); Bacteria Urine Automated 4+ (None Seen); Bilirubin Urine Negative (Negative); Blood Urine Negative (Negative); Cast Urine Automated 0-2 /lpf (0-2); Color Urine Yellow; Epithelial Cell Urine Auto 0-2 /hpf (0-2); Glucose Urine UA Negative (Negative); Ketones Urine Negative (Negative); Leukocyte Esterase Urine Negative (Negative); Nitrite Urine Positive (Negative); Protein Urine Negative (Negative); RBC Urine Automated 0-2 /hpf (0-2); Specific Gravity Urine 1.026 (1.000-1.030); Urobilinogen Urine Negative (Negative); WBC Urine Automated 0-5 /hpf (0-5)
[2025-01-01] MEDS: ASPIRIN CHEW 324 MG PO STA (19:28)
[2025-01-01] MEDS ORDERED: PHARMACIST DISCHARGE MED REC CONSULT PRN (19:36)
[2025-01-01] MEDS: LABETALOL HCL IV 5 MG/ML 20ML IV STA (19:36)
--- NOTE | 2025-01-01 20:10 | History & Physical Report ---
Date of Service January 01, 2025 Assessment & Plan (1) Vertebral artery dissection: Plan 79 year old female presents to the ER with hypertension and stroke like symptoms (now resolved but leaning to left side 2 days prior to admission) #Right vertebral artery dissection No neck pain but leaning to left side therefore suspect she had a downstream stroke. Start ASA. Switch simvastatin for atorvastatin. Monitor on telemetry. Stroke Eval q4h. MRI brain, MRA neck w/wo IV contrast, MRA head as requested by telestroke neurology to assess the dissection better Labetalol 10mg IV q1h PRN for sBP > 180 as recommended by telestroke neurology Consult neurology #Asymptomatic bacteruria No need for treatment at this time unless she starts to develop urinary symptoms, monitor VTE Prophylaxis - Lovenox 40 mg SQ daily Diet - heart healthy Disposition - observation to PCU Admission and Anticipated Discharge Date Admission Date: January 01, 2025 History of Present Illness Chief Complaint: Stroke like symptoms Primary Care Provider: ALAN Ashton Samantha Beyer is a 79 year old female who presents to the ER with left sided weakness that occurred 2 days ago and now resolved. Initially she did not present to the ER as her symptoms resolved and it hadn't crossed her mind she might be having a stroke. On Monday while walking around [facility] she noticed she was leaning over to the left and her elbow was below her waist, she was able to self correct but generally felt uncomfortable. She reports her symptoms resolved by the end of her shopping trip but during the evening her again noticed her leaning to the left side. She fell asleep and felt fine the following day. She talkd to her physical therapist she has been seeing for BPPV today about her symptoms and with her blood pressure elevation they discussed with her primary care physician and recommended she came to the ER for evaluation. No acute change in hearing, speech or vision. She has never had a heart attack or stroke. No neck pain. No urinary symptoms. She reports her vertigo has been ongoing for the last 1-2 years with no acute change. Allergies Allergy/AdvReac Type Severity Reaction Status Date / Time No Known Drug Allergies Allergy Verified 01/01/25 19:42 Home Medications Medication Instructions Recorded Confirmed Type ascorbic acid (vitamin C) 500 mg 500 mg PO QAM 08/15/19 01/01/25 History capsule polyethylene glycol 3350 17 17 g PO DAILY PRN Constipation 07/12/20 01/01/25 History gram/dose oral powder (Miralax) psyllium husk 3.4 gram/5.4 gram 1 tsp PO DAILY PRN Constipation 07/12/20 01/01/25 History oral powder (Metamucil) sertraline 50 mg tablet 250 mg PO QAM 07/29/20 01/01/25 History buspirone 10 mg tablet 20 mg PO TID 01/27/21 01/01/25 History ibuprofen 200 mg tablet 400 mg PO Q6H PRN PAIN/FEVER 07/19/22 01/01/25 History cholecalciferol (vitamin D3) 25 2,000 unit PO QPM 05/30/23 01/01/25 History mcg (1,000 unit) capsule (Vitamin D3) clonazepam 0.5 mg tablet 0.25 mg PO TID 05/30/23 01/01/25 History gabapentin 300 mg capsule 300 mg PO BID #60 caps 09/25/23 01/01/25 Rx losartan 50 mg tablet 50 mg PO BID #180 tabs 01/04/24 01/01/25 Rx metoprolol succinate 50 mg 75 mg (1.5 x 50 mg) PO PM #135 tabs 04/12/24 01/01/25 Rx tablet,extended release 24 hr simvastatin 40 mg tablet 40 mg PO QPM #90 tabs 05/13/24 01/01/25 Rx pantoprazole 20 mg tablet,delayed 20 mg PO BID #180 tabs 07/29/24 01/01/25 Rx release denosumab 60 mg/mL subcutaneous 60 mg subcut .COMPLEX #1 mL 08/21/24 01/01/25 Rx syringe (Prolia) potassium chloride 20 mEq 20 meq PO UD #120 tabs 12/30/24 01/01/25 Rx tablet,extended release calcium carbonate 500 mg PO QAM 01/01/25 01/01/25 History cholecalciferol (vitamin D3) 10 20 mcg PO DAILY 01/01/25 01/01/25 History mcg (400 unit) tablet (Vitamin D3) magnesium oxide 800 mg PO DAILY 01/01/25 01/01/25 History sumatriptan succinate 100 mg tablet 50 mg PO UD PRN Migraine Headache 01/01/25 01/01/25 History trazodone 50 mg tablet 25 mg PO QPM 01/01/25 01/01/25 History Past Med/Surg History Problem List (Updated 01/01/25 @ 20:36 by Kev Bobby MD) Vertebral artery dissection Injury of right vertebral artery (Acute) Stroke-like symptoms (Acute) At risk for falling Bilateral leg weakness L>R Unsteady gait when walking Thoracic spine pain Pyloric stenosis Cognitive changes History of kidney cancer Spinal stenosis of lumbar region Postoperative back pain Radicular leg pain Generalized headaches Left leg pain History of breast cancer 1997 and 1998; left lumpectomy + chemo/radiation Lumbosacral radiculopathy at S1 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 at [facility] [place] reoccurrence 10/26 Lumbar spinal stenosis Pyloric stenosis Myalgia (Acute) Vitamin D deficiency (Chronic) Arthritis Sensorineural hearing loss of both ears Osteoporosis (Chronic) Hypertension (Chronic) Migraine headache (Chronic) Hiatal hernia (Chronic) Generalized anxiety disorder (Chronic) Constipation (Chronic) HLD (hyperlipidemia) (Chronic) Medical History Spinal stenosis of lumbar region Cognitive changes History of kidney cancer (2021) Hiatal hernia Hypertension Hx of chest pain Hyperlipidemia Vertigo Arthritis Pyloric stenosis Hx of breast cancer (01/1998) History of COVID-19 (08/2020) PONV (postoperative nausea and vomiting) Osteoarthritis HUGHES (hard of hearing) Anxiety and depression History of migraine 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) Bilateral leg weakness Surgical History Hx of myomectomy (1979) History of lumbar surgery (04/2022) History of kidney surgery (2021) History of back surgery (07/2020) Spastic entropion (2019) S/P epidural steroid injection (08/2021) History of non-cataract eye surgery (10/2019) History of esophagogastroduodenoscopy (EGD) History of colonoscopy History of hemorrhoidectomy (1969) History of lumpectomy (03/1998) History of breast biopsy History of cataract surgery (06/2015) History of hysterectomy (1993) Family History Mother Breast cancer Father Hearing loss Brother Hearing loss Other Hypertension No family history of bleeding disorder Denies family history of Ovarian cancer Prostate cancer Myocardial infarction Colorectal cancer Social History Smoking Status: Never smoker Second Hand Exposure: Yes (As a child. ); Do You Dip or Chew Tobacco: No; Hx Alcohol Use: No Hx Substance Use: No Preferred Language: Urdu Communication Ability: Effective Visual Impairment: Limited Hearing Ability: Use of Hearing Aid Special Education Classroom Aide Required: No Beliefs That Will Affect Care: None marital status: Current Living Situation: Spouse current occupational status: retired How many Children do You have: 2 Feels Safe at Home: Yes Safety Concerns: Feels Safe At This Time Childhood Exposure to Second-Hand Smoke: Yes Diet: regular caffeine: Yes during the past year weight has: remained stable Dental Care, Regularly: Yes Physical Activity Frequency: Does not Exercise Seatbelt Use: always Sunscreen Use: Yes Do you think of yourself as: straight/heterosexual Sexual Activity: has been sexually active, but not for at least 12 months Gender Identity: Female Assistive Devices: Glasses and Hearing Aid - Bilateral Review of Systems Review of Systems: All systems reviewed & are unremarkable except as noted in HPI & below Physical Exam Constitutional: WD/WN, vitals as above ENMT: external ear and nose normal, oropharynx normal Respiratory: normal respiratory effort, lungs clear to auscultation Cardiovascular: RRR, no murmur, no edema Gastrointestinal (Abdomen): normal bowel sounds, soft, nontender, no hepatosplenomegaly Musculoskeletal: no cyanosis or clubbing, extremities motor strength 5/5 Skin: no rashes, warm and dry Neurologic: moves all extremities and awake; not confused Speech / Cognition: normal speech Motor/Sensory: no tremor, no pronator drift and no sensory deficit Cranial Nerves: PERRL, normal accommodation, EOM intact bilaterally, normal facial strength, normal hearing, able to rotate head bilaterally, able to elevate shoulders bilaterally, no nystagmus and symmetric palate elevation; + tongue not midline (tongue deviation to left) Coordination: normal [id number] test Psychiatric: Orientation: alert and oriented x 3 Results & Data Results & Data Vital Signs (Past 12 Hours) Vital Signs Temp Pulse Pulse Pulse Resp BP BP 01/01/25 20:00 72 20 172/140 H 01/01/25 19:57 71 172/140 H 01/01/25 19:36 65 195/112 H 01/01/25 19:12 63 20 184/113 H 01/01/25 17:53 65 01/01/25 17:00 59 L 17 186/103 H 01/01/25 15:19 16 124/105 H 01/01/25 13:25 36.7 C 67 16 146/88 H Pulse Ox O2 Del Method 01/01/25 20:00 96 Room Air 01/01/25 19:57 01/01/25 19:36 01/01/25 19:12 97 Room Air 01/01/25 17:53 01/01/25 17:00 96 Room Air 01/01/25 15:19 98 Room Air 01/01/25 13:25 94 Room Air Laboratory Results Abnormal lab results 01/01/25 01/01/25 Range/Units 13:40 18:28 Chloride 109 H (98-107) mmol/L BUN/Creatinine Ratio 21.3 H (10-20) Urine Nitrite Positive A (Negative) Urine Bacteria (Auto) 4+ H (None Seen) Diagnostic Findings CT Head Clinical History: Left-sided weakness Technique: Axial computed tomography images were obtained of the brain without i ntravenous contrast. Findings: There is mild cerebral atrophy, within expected limits for the patient's age. Areas of decreased attenuation are seen within the periventricular white matter, likely representing chronic small vessel ischemic disease. There is no definite sign of acute or old infarction. No intracranial hemorrhage is evident. No definite mass lesion is seen on this noncontrast examination. There is no midline shift or other form of herniation. No hydrocephalus is seen. No fracture is identified. The orbits and the visualized paranasal sinuses appear unremarkable. The mastoid air cells appear clear. Impression: 1. Cerebral atrophy and chronic small vessel ischemic disease 2. Otherwise unremarkable noncontrast CT of the brain CT angiogram neck Clinical History: Left-sided weakness Technique: Axial computed tomography images were obtained of the brain after the administration of intravenous contrast according to the CT angiogram protocol Findings: There is mild calcified plaque within the cavernous and supraclinoid segments of the internal carotid arteries bilaterally, without stenosis No definite stenosis or aneurysm is seen of the anterior, middle, or posterior cerebral artery circulations. The visualized vertebral arteries and the basilar artery appear unremarkable Impression: No definite stenosis or aneurysm of the intracranial arteries Technique: Axial computed tomography images were obtained of the neck after the administration of intravenous contrast according to the CT angiogram protocol Findings: No stenosis is seen of the common carotid arteries bilaterally. There is a mild stenosis of the right carotid bulb with approximately 30% diameter narrowing. The remainder of the internal carotid arteries appear patent bilaterally. No stenosis of the external carotid arteries is seen There is an atypical appearance of an approximately 6 mm long segment of the distal right vertebral artery at the level of the foramen magnum, image 277 of the thin section axial series and image 48 of the coronal reconstructions. This could be due to a focal dissection The vertebral arteries otherwise appear unremarkable with no significant stenosis seen. The visualized thoracic aorta appears unremarkable There is multilevel degenerative disc disease and osteoarthritis of the cervical spine. Impression: 1. Possible focal dissection of the distal right vertebral artery. Conventional angiography could be considered for further evaluation 2. Mild stenosis of the right carotid bulb, with approximately 30% diameter narrowing CT angiogram head Clinical History: Left-sided weakness Technique: Axial computed tomography images were obtained of the brain after the administration of intravenous contrast according to the CT angiogram protocol Findings: There is mild calcified plaque within the cavernous and supraclinoid segments of the internal carotid arteries bilaterally, without stenosis No definite stenosis or aneurysm is seen of the anterior, middle, or posterior cerebral artery circulations. The visualized vertebral arteries and the basilar artery appear unremarkable Impression: No definite stenosis or aneurysm of the intracranial arteries Medications Administered ER Medications Given: Aspirin 324mg PO Labetalol 10mg IV Code Status & VTE Plan Code Status Full VTE Prophylaxis Plan VTE Prophylaxis will be ordered: Yes PG Care Time/CCT Total # of Minutes Spent Total Time Spent with Patient: Total time spent is greater than 50% in coordination of care (as documented) at patient's floor/unit and/or counseling patient: Coding Level of Care Code 55753 INT INP/OBS CARE 3/75MIN Diagnoses Vertebral artery dissection I77.74
[2025-01-01] MEDS: GADOBUTROL 65ML VIAL IV ONE (21:45)
[2025-01-01] MEDS ORDERED: LABETALOL HCL IV 5 MG/ML 20ML IV PRN (22:16)
[2025-01-01] MEDS ORDERED: POLYETHYLENE (MIRALAX) 17 GM PACK PO PRN (22:16)
[2025-01-01] MEDS ORDERED: POTASSIUM CHLORIDE CRTAB 20 MEQ TABCR PO SCH (22:16)
[2025-01-01] MEDS: ATORVASTATIN 40 MG TAB PO SCH (23:01)
[2025-01-01] MEDS: busPIRone 5 MG TAB PO SCH (23:02)
[2025-01-01] MEDS: GABAPENTIN 300 MG CAP PO SCH (23:02)
[2025-01-01] MEDS: PANTOprazole 40 MG TAB PO SCH (23:03)
[2025-01-01] MEDS: METOPROLOL SUCC 25MG EXT REL TAB PO SCH (23:03)
[2025-01-01] MEDS: LOSARTAN POTASSIUM 50 MG TAB PO SCH (23:03)
[2025-01-01] MEDS: clonazePAM 0.5 MG TAB PO SCH (23:06)
[2025-01-01] MEDS: traZODone HCL 50 MG TAB PO SCH (23:06)
--- NOTE | 2025-01-02 00:52 | Magnetic Resonance Report ---
Exam(s): MRA HEAD Without Contrast EXAM: MR Angiography Head Without Intravenous Contrast CLINICAL HISTORY: Reason for exam: right vertebral artery dissection. TECHNIQUE: Magnetic resonance angiography images of the head without intravenous contrast. COMPARISON: Prior CT angiogram of the head from January 01, 2025. FINDINGS: Right internal carotid artery: No acute findings. Intracranial segment is patent with no significant stenosis. No aneurysm. Right anterior cerebral artery: Unremarkable. No occlusion or significant stenosis. No aneurysm. Right middle cerebral artery: Unremarkable. No occlusion or significant stenosis. No aneurysm. Right posterior cerebral artery: Unremarkable. No occlusion or significant stenosis. No aneurysm. Right vertebral artery: Unremarkable as visualized. Left internal carotid artery: No acute findings. Intracranial segment is patent with no significant stenosis. No aneurysm. Left anterior cerebral artery: Unremarkable. No occlusion or significant stenosis. No aneurysm. Left middle cerebral artery: Unremarkable. No occlusion or significant stenosis. No aneurysm. Left posterior cerebral artery: Unremarkable. No occlusion or significant stenosis. No aneurysm. Left vertebral artery: Unremarkable as visualized. Basilar artery: Unremarkable. No occlusion or significant stenosis. No aneurysm. IMPRESSION: Negative MRA of the brain. Electronically signed by: Macy Cook MD 01/02/25 00:51 AM
--- NOTE | 2025-01-02 01:27 | Magnetic Resonance Report ---
Exam(s): MRI HEAD Without Contrast EXAM: MR Head Without Intravenous Contrast CLINICAL HISTORY: Reason for exam: Right vertebral artery dissection. TECHNIQUE: Magnetic resonance images of the head/brain without intravenous contrast in multiple planes. COMPARISON: Prior head CT from January 01, 2025 and brain MRI from March 17, 2024.. FINDINGS: Brain: Mild nonspecific white matter changes. No mass. No hemorrhage. No acute infarct. The flow voids at the base the brain are intact. Ventricles: Mild ventriculomegaly. Bones/joints: Unremarkable. No acute fracture. Sinuses: Chronic ethmoid sinusitis. No acute sinusitis. Mastoid air cells: Unremarkable as visualized. No mastoid effusion. Orbits: Bilateral lens replacements. IMPRESSION: No evidence of acute intracranial pathology. Electronically signed by: Macy Cook MD 01/02/25 01:27 AM
--- NOTE | 2025-01-02 01:51 | Magnetic Resonance Report ---
Exam(s): MRA NECK W/WO Contrast IV Amt: 5.8CC GADAVIST EXAM: MR Angiography Neck Without and With Intravenous Contrast CLINICAL HISTORY: Reason for exam: Right vertebral artery dissection. TECHNIQUE: Magnetic resonance angiography images of the neck without and with intravenous contrast. CONTRAST: Patient received 5.8CC GADAVIST of IV contrast COMPARISON: No relevant prior studies available. FINDINGS: Right common carotid artery: Unremarkable. No significant stenosis. No dissection or occlusion. Right internal carotid artery: Unremarkable. Extracranial segment is patent with no significant stenosis. No dissection or occlusion. Right external carotid artery: Unremarkable. No occlusion. Right vertebral artery: Unremarkable. No significant stenosis. No dissection or occlusion. Left common carotid artery: Unremarkable. No significant stenosis. No dissection or occlusion. Left internal carotid artery: Unremarkable. Extracranial segment is patent with no significant stenosis. No dissection or occlusion. Left external carotid artery: Unremarkable. No occlusion. Left vertebral artery: Unremarkable. No significant stenosis. No dissection or occlusion. Soft tissues: Unremarkable as visualized. CAROTID STENOSIS REFERENCE USING NASCET CRITERIA: % ICA stenosis = (1 - narrowest ICA diameter/diameter of distal cervical ICA) x 100. Mild - <50% stenosis. Moderate - 50-69% stenosis. Severe - 70-94% stenosis. Near occlusion - 95-99% stenosis. Occluded - 100% stenosis. IMPRESSION: Negative MRA of the neck. Electronically signed by: Macy Cook MD 01/02/25 01:49 AM
[2025-01-02 03:10] VITALS: RESP 18
[2025-01-02 06:32] LABS: Basophils # (auto) 0.01 K/uL (0.00-0.20); Basophils % (auto) 0.2 %; Eosinophils # (auto) 0.11 K/uL (0.00-0.50); Eosinophils % (auto) 2.4 %; Hematocrit (blood only) 41.4 % (37.0-47.0); Hemoglobin 13.5 g/dl (12.0-16.0); Immature Granulocytes # (auto) 0.01 K/uL (0.01-0.20); Immature Granulocytes % (auto) 0.2 %; Lymphocytes # (auto) 1.76 K/uL (1.20-3.40); Lymphocytes % (auto) 37.9 %; Mean Corpuscular Hemoglobin 27.3 pg (25.0-34.0); Mean Corpuscular Hgb Conc 32.6 g/dL (32.0-36.0); Mean Corpuscular Volume 83.8 fL (80.0-100.0); Mean Platelet Volume 9.8 fL (9.4-12.4); Monocytes # (auto) 0.49 K/uL (0.11-0.59); Monocytes % (auto) 10.6 %; Neutrophils # (auto) 2.26 K/uL (1.40-6.50); Neutrophils % (auto) 48.7 %; Platelet Count 137 K/uL (130-400); RDW Coefficient of Variation 14.3 % (11.5-14.5); RDW Standard Deviation 43.7 fL (36.4-46.3); Red Blood Count 4.94 M/uL (4.20-5.40); White Blood Count 4.64 K/ul (4.8-10.8)
[2025-01-02 06:54] LABS: BUN Creatinine Ratio 21.6 (10-20); Calcium 9.2 mg/dl (8.6-10.3); Chol HDL Ratio 2.9 (0-5); Potassium 3.7 mmol/L (3.5-5.1)
[2025-01-02] MEDS: ASPIRIN 81 MG ECTAB PO SCH (07:53)
[2025-01-02] MEDS: SERTRALINE HCL 50 MG TABLET PO SCH (07:53)
[2025-01-02] MEDS: ENOXAPARIN INJ 40 MG/0.4 ML SYR SQ SCH (07:54)
[2025-01-02 07:59] LABS: Estimated Average Glucose 128 mg/dl; Hemoglobin A1C 6.1 % (4.5-5.6)
[2025-01-02] MEDS: POTASSIUM CHLORIDE CRTAB 20 MEQ TABCR PO SCH (08:25)
--- NOTE | 2025-01-02 09:53 | Electrocardiogram Report ---
Test Reason : Blood Pressure : */* mmHG Vent. Rate : 59 BPM Atrial Rate : 59 BPM P-R Int : 164 ms QRS Dur : 74 ms QT Int : 426 ms P-R-T Axes : 61 -48 40 degrees QTcB Int : 421 ms Sinus bradycardia Possible Left atrial enlargement Left anterior fascicular block Minimal voltage criteria for LVH, may be normal variant ( R in aVL ) Abnormal ECG When compared with ECG of 15-Sep-2023 14:22, No significant change was found Confirmed by Manolo Ogden ([id number]) on 01/02/2025 9:53:05 AM Referred By: Iker Anthony Confirmed By: Manolo Ogden
[2025-01-02] MEDS ORDERED: SUMAtriptan succinate 50 MG TAB PO PRN (10:06)
--- NOTE | 2025-01-02 11:00 | Neurology Consultation ---
Date of Consultation January 02, 2025 Assessment & Plan (1) Vertigo: (2) Gait disturbance: (3) Lipoma of spinal cord: (4) Lumbar spinal stenosis: (5) Hypertension: Plan This patient presented with presumed strokelike symptoms but her symptoms are all likely inner ear in origin. She has a intermittent peripheral vertigo. Therefore, this patient not only did not have a stroke, I do not believe this patient had a TIA and there is no evidence after MR angiography that she has any type of vertebral artery dissection or issue. The CT saw calcification and plaque as opposed to a dissection. Overall MR angiography shows no vascular anomalies of the head or neck. The patient does have some mild to moderate old small vessel ischemia likely secondary to her history of hypertension and aging. Her blood pressure has been elevated intermittently since admission. 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 She has spine pain and lower extremity symptoms. Overall she has a gait disturbance which is likely related to her spine and large caliber sensory fiber neuropathy (proprioception). There are no upper motor neuron signs on exam but I do think she could have chronic lumbosacral radiculopathy as well as the peripheral neuropathy affecting her limbs and gait. Recommendations: 1. Use meclizine as needed for dizziness 2. Can continue 81 mg aspirin 3. Consider EMG and nerve conduction studies of the lower extremitiesbut this is done as an outpatient. 4. Consider ESR, B12, folate, Lyme antibody titer, and TSH if not already obtained 5. Increase activity as able 6. I can follow as an outpatientmake appointment with neurology PA 2 to 3 weeks after discharge (or just obtain the EMG of the legs and I will see the patient then) Overall, I spent a total of 90 minutes with this case including review of records, review of CT and MRI films, direct evaluation of patient at bedside, report generation, and discussion of the case with the patient and family ( and daughter) at bedside, RN, and Dr. Perry, including differential diagnosis and treatment options. History of Present Illness Reason for Consultation: Patient is a 79-year-old who I was asked to see at the request of Dr. Bobby, for neurologic consultation regarding possible stroke Requesting Physician: Dr. Bobby Attending Physician: Nuria Perry MD History of Present Illness This patient had a history of breast cancer in resulting in left lumpectomy, chemotherapy, and radiation. Because of increased mid back pain she had imaging which showed a thoracic mass (consistent with lipoma). In July 2020 she underwent a T3-T6 thoracic laminectomy to remove an intradural lipoma. There was partial resection because as they tried to remove it all, the intraoperative evoked potential was showing stress on the spinal cord. Therefore it was a subtotal resection. In December 2020, I performed EMG interconnect studies and showed very mild acute S1 radiculopathy bilaterally. There was no polyneuropathy at that time. MRI of the lumbar spine showed moderate spinal stenosis at L4-5. Epidural steroids and gabapentin helped some. Over time she developed more lower extremity weakness and bowel issues. She also had a recurrence of her mid thoracic pain. 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 After this partial nephrectomy (interestingly) her leg and chest symptoms improved some). Over time they worsened and in April 2022, the patient underwent a L4-5 laminectomy with Coflex insertion by Dr. Rosenthal at [facility]. Over time (the last 2 years) the patient has had ongoing thoracic spine pain and low back and lower extremity pain. There is weakness and numbness at times in the lower extremities and she has balance problems. In 2022 she developed a L4- 5 facet joint cyst which was helped with aspiration and epidural steroids by Dr. Keene sometime in 2022. An MRI of the thoracic spine in June 2024 showed a 6 cm epidural mass had recurred. There was severe canal stenosis. Although there is some talk of perhaps reoperating on the thoracic spine this has not been set up yet. The patient has episodes where she feels that she is moving (not the environment) that occurs suddenly 2 or 3 times a week lasting up to 20 minutes (typically 10 to 15 minutes). On December 30, she was shopping and had the sudden onset of feeling like she was tilting and leaning to the left. She held onto the cart and did not fall over. The left side felt weak. The worst of this lasted a number of minutes and then subsided enough that she could drive back to home. The patient's (who is present today for the history) said that the patient was walking quite well when she first got home. Later that evening she had another episode and he saw her leaning and twisting to the left. She feels dizzy during these but has no headache. There is no nausea or vision problems with this. The patient arrived to the emergency room January 01 at 1325 at the advice of her PCP because of the symptoms of December 30. Blood pressure was 146/88 although higher readings were recorded later during that emergency room stay. She was afebrile 36.7, pulse in the 70s, and respiratory rate 16. O2 saturation was 94% CBC, CHEM profile, liver profile, and urinalysis were unremarkable. CT scan of the head showed some mild atrophy and old small vessel ischemic disease but no acute changes. CT angiography of the head was unremarkable with no vascular anomalies or stenoses. CT angiography of the neck showed a possible dissection in the distal right vertebral of about 6 cm. There was some 30% stenosis in the right carotid bulb. The patient had no complaint of headache or dizziness in the emergency room. She had no new neck pain that was out of the ordinary (some chronic nonspecific posterior neck pain over the years). She was given aspirin. MRI of the brain showed no acute stroke. There was mild to moderate old small vessel ischemic disease and mild to moderate generalized atrophy. I reviewed these films. MR angiography of the head and neck showed no vascular anomalies or stenoses. There was no evidence for a right vertebral stenosis or dissection. I reviewed these films and discussed the CT and MRI films with Dr. Mcknight. In retrospect, he believes there is no right vertebral dissection and this was likely calcification/plaque Today, CBC and CHEM profile were unremarkable. Triglycerides were 100 and total cholesterol 173. Patient has a typical 10-minute vertiginous episode earlier this morning. She has chronic hearing loss for years and wears hearing aids. She has no tinnitus or ear pain. Allergies Allergy/AdvReac Type Severity Reaction Status Date / Time No Known Drug Allergies Allergy Verified 01/01/25 19:42 Home Medications Medication Instructions Recorded Confirmed Type ascorbic acid (vitamin C) 500 mg 500 mg PO QAM 08/15/19 01/01/25 History capsule polyethylene glycol 3350 17 17 g PO DAILY PRN Constipation 07/12/20 01/01/25 History gram/dose oral powder (Miralax) psyllium husk 3.4 gram/5.4 gram 1 tsp PO DAILY PRN Constipation 07/12/20 01/01/25 History oral powder (Metamucil) sertraline 50 mg tablet 250 mg PO QAM 07/29/20 01/01/25 History buspirone 10 mg tablet 20 mg PO TID 01/27/21 01/01/25 History ibuprofen 200 mg tablet 400 mg PO Q6H PRN PAIN/FEVER 07/19/22 01/01/25 History cholecalciferol (vitamin D3) 25 2,000 unit PO QPM 05/30/23 01/01/25 History mcg (1,000 unit) capsule (Vitamin D3) clonazepam 0.5 mg tablet 0.25 mg PO TID 05/30/23 01/01/25 History gabapentin 300 mg capsule 300 mg PO BID #60 caps 09/25/23 01/01/25 Rx losartan 50 mg tablet 50 mg PO BID #180 tabs 01/04/24 01/01/25 Rx metoprolol succinate 50 mg 75 mg (1.5 x 50 mg) PO PM #135 tabs 04/12/24 01/01/25 Rx tablet,extended release 24 hr simvastatin 40 mg tablet 40 mg PO QPM #90 tabs 05/13/24 01/01/25 Rx pantoprazole 20 mg tablet,delayed 20 mg PO BID #180 tabs 07/29/24 01/01/25 Rx release denosumab 60 mg/mL subcutaneous 60 mg subcut .COMPLEX #1 mL 08/21/24 01/01/25 Rx syringe (Prolia) potassium chloride 20 mEq 20 meq PO UD #120 tabs 12/30/24 01/01/25 Rx tablet,extended release calcium carbonate 500 mg PO QAM 01/01/25 01/01/25 History cholecalciferol (vitamin D3) 10 20 mcg PO DAILY 01/01/25 01/01/25 History mcg (400 unit) tablet (Vitamin D3) magnesium oxide 800 mg PO DAILY 01/01/25 01/01/25 History sumatriptan succinate 100 mg tablet 50 mg PO UD PRN Migraine Headache 01/01/25 01/01/25 History trazodone 50 mg tablet 25 mg PO QPM 01/01/25 01/01/25 History aspirin 81 mg tablet,delayed 81 mg PO QAM #0 tabs 01/02/25 Rx release meclizine 12.5 mg tablet 12.5 mg PO Q8H PRN vertigo #30 tabs 01/02/25 Rx Patient History Medical History Spinal stenosis of lumbar region Cognitive changes difficulty with memory / had head CT "normal age related issues" History of kidney cancer (2021) tumor removal from left side Hiatal hernia Hypertension Hx of chest pain multiple ER visits, cardiac ruled out Hyperlipidemia Vertigo occasional with movement Arthritis Pyloric stenosis Hx of breast cancer (01/1998) XRT and chemo/ left History of COVID-19 (08/2020) asymptomatic PONV (postoperative nausea and vomiting) Osteoarthritis [place] (hard of hearing) Anxiety and depression History of migraine 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) Hx- multiple limpoma's removed in [place] Surgical History Hx of myomectomy (1979) x2 fibroids removed History of lumbar surgery (04/2022) [place] History of kidney surgery (2021) left tumor removed, [place] History of back surgery (07/2020) thoracic, [place] 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 Hearing loss Heart disease Myocardial infarction Brother Hearing loss Other Hypertension No family history of bleeding disorder Denies family history of Ovarian cancer Prostate cancer Colorectal cancer Social History Smoking Status: Never smoker Second Hand Exposure: Yes (As a child. ); Do You Dip or Chew Tobacco: No; Hx Alcohol Use: No Hx Substance Use: No Preferred Language: Hebrew Communication Ability: Effective Visual Impairment: Limited Hearing Ability: Use of Hearing Aid Caul Fat Puller Required: No Beliefs That Will Affect Care: None marital status: Current Living Situation: Spouse current occupational status: retired current occupation: Retired from sales age 63 How many Children do You have: 2 Feels Safe at Home: Yes Childhood Exposure to Second-Hand Smoke: Yes Diet: regular caffeine: Yes during the past year weight has: remained stable Dental Care, Regularly: Yes Physical Activity Frequency: Does not Exercise Seatbelt Use: always Sunscreen Use: Yes Do you think of yourself as: straight/heterosexual Sexual Activity: has been sexually active, but not for at least 12 months Gender Identity: Female Assistive Devices: Glasses and Hearing Aid - Bilateral Review of Systems Constitutional: no fever, no fatigue and no weakness Eyes: no diplopia, no eye pain and no worsening vision Ear, Nose, Mouth, Throat: no ear pain, no tinnitus, no hearing loss, no dizziness, no snoring, no hoarseness and no dysphagia Respiratory: no cough and no dyspnea Cardiovascular: no chest pain, no palpitations and no lightheadedness Gastrointestinal: no abdominal pain, no nausea and no vomiting Genitourinary: no dysuria, no urinary frequency and no urinary incontinence Musculoskeletal: + back pain and + neck pain; no radicula r pain, no joint pain and no myalgia Integumentary: no rash and no lesions Neurologic: + gait abnormality; no localized weaknes s, no generalized weakness, no tingling, no numbness, no tremor(s), no abnormal movements, no headache(s), no abnormal speech, no confusion and no memory loss Psychiatric: no depression, no irritability, no anxiety, no difficulty concentrating, no confusion and no hallucinations Endocrine: no fatigue and no flushing Hematologic / Lymphatic: no easy bleeding and no easy bruising Allergy / Immunological: no urticaria and no problem reported Exam (Neuro) Physical Exam: The patient is right-handed. The patient is awake, alert, and attentive. Speech is normal without any aphasia or dysarthria. Mentation and thought processes are intact, with full orientation and normal fund of knowledge. Mood and affect are normal and appropriate. Appearance and grooming are normal. Short and long-term memory are reasonable to conversation. Pupils are 4 mm bilaterally and reactive to light. Extraocular eye muscles are intact without nystagmus. Visual acuity and visual maxwell seem normal grossly to confrontation. There are no deficits to sensation in the face in all 3 distributions of the fifth cranial nerve bilaterally. Corneal reflexes are positive bilaterally. Facial strength and symmetry was normal bilaterally. There is decreased hearing bilaterally. Palate moves well without asymmetry. There is normal sternocleidomastoid and trapezius strength bilaterally. Tongue is midline with good strength bilaterally. Neck has a full range of motion without discomfort. There are no cervical bruits bilaterally. There are no cranial or ocular bruits. Heart is without murmur. There is a regular rhythm and rate. Cervical spine has some tenderness to palpation of the paraspinal muscles of the cervical occipital junction on the right. Thoracic spine is tender in the upper area and there is some soft tissue swelling and nontender soft mass consistent with lipoma. Lumbar spine is nontender to palpation. Gait is narrow based but she is cautious particularly with turns. Stance has slightly wide-based and when she puts her feet together she loses her balance even with eyes open. With eyes closed her gait deteriorates further. With outstretched arms there is no drift. There are no resting tremors. Patient has very minimal action tremor bilaterally. There is no ataxia with finger to nose testing. There is good facility in the hands. No other abnormal involuntary movements are noted. Motor strength is 5/5 diffusely in the arms bilaterally including deltoids, biceps, triceps, brachioradialis, wrist flexors and extensors, basket mender, and intrinsic hand muscles. Motor strength is 5/5 diffusely in the legs bilaterally including hip flexors, quadriceps, hamstrings, gastrocnemius, tibialis anterior, tibialis posterior, and Peroneii muscles bilaterally. Toe extensors are normal and there is good bulk in the extensor digitorum brevis muscles bilaterally. The limbs have good tone without rigidity or spasticity. There is no atrophy noted in the muscles. Muscle bulk is normal, there is no tenderness to palpation, no myotonia to percussion, and no fasciculations seen. Sensory examination reveals a a essentially normal sensation to pin in all 4 limbs (no stocking glove loss). There is mild vibratory sense loss in the feet bilaterally. Reflexes are 2/4 in the biceps, triceps, brachioradialis, and quadriceps tendons bilaterally. Achilles tendon reflexes are trace to 1/4 bilaterally. Toes are downgoing with plantar stimulation bilaterally. Peripheral pulses are present and of normal quality distally in all 4 limbs. There is no peripheral edema noted in the limbs. Results & Data Vital Signs (Past 12 Hours) Vital Signs Temp Pulse Pulse Resp BP Pulse Ox O2 Del Method 01/02/25 08:00 56 L 01/02/25 07:20 36.7 C 62 18 156/94 H 97 Room Air 01/02/25 03:09 36.7 C 65 18 113/58 L 96 Room Air 01/01/25 22:35 36.6 C 67 16 181/93 H 94 Room Air PG Care Time/CCT Total # of Minutes Spent Total Time Spent with Patient: Total time spent is greater than 50% in coordination of care (as documented) at patient's floor/unit and/or counseling patient: Coding Level of Care Code 56615 INT INP/OBS CARE 3/75MIN Diagnoses Vertigo R42 Gait disturbance R26.9 Lipoma of spinal cord D17.79 Lumbar spinal stenosis M48.061 Primary hypertension I10 Hypertension type: primary hypertension (5) Hypertension Hypertension type: primary hypertension Qualified Code(s): I10 - Essential (primary) hypertension
[2025-01-02] MEDS: ACETAMINOPHEN 500 MG TAB PO ONE (11:33)
[2025-01-02] MEDS: MECLIZINE 12.5 MG TAB PO PRN (11:33)
[2025-01-02 12:06] VITALS: BP 137/86; PULSE 64; TEMP 97.9; O2SAT 93
[2025-01-02 12:34] LABS: Folate (Folic Acid),Ser orPlas > 22.30 ng/ml (>5.38)
[2025-01-02] MEDS ORDERED: STROKE PATIENT DISCHARGE STA (12:34)
[2025-01-02 12:35] LABS: Vitamin B12 330 pg/ml (180-914)
--- NOTE | 2025-01-02 18:28 | Discharge Summary ---
Discharge Summary Date of Service January 02, 2025 Principal Dx & Hospital Course #1 = Principal Diagnosis (1) Vertebral artery dissection: (2) Vestibular dysfunction: (3) BPPV (benign paroxysmal positional vertigo): (4) Peripheral neuropathy: (5) Stroke-like symptoms: (6) Hypertension: (7) Prediabetes: Plan 79 year old female presents to the ER with hypertension and stroke like symptoms (now resolved but leaning to left side 2 days prior to admission). she has a history of hypertension hyperlipidemia and ongoing vertigo symptoms, Thought to be BPPV. initial ED evaluation included CT of the head which was negative CT a of the head and neck which was notable for possible small right vertebral artery dissection. [place] telestroke consulted she was outside of the window for thrombolytic therapy and had no ongoing neurodeficits. MRI of the brain and MRA of head/neck were recommended. she remained free of the left-sided symptoms excepting her vertigo which has been going on for approximately 2 years. Brain MRI was negative for stroke, there is some chronic cerebrovascular disease. MRA was negative for any evidence of dissection. Neurologist Dr. Hauser consulted. there was no stroke and there was no dissection, he did not think the symptoms were consistent with TIA rather that her symptoms were related to her vestibular/inner ear dysfunction. Recommended treatment of this with meclizine. He also thought she may have peripheral neuropathy and/or myelopathy related to her spinal disease. He recommended some labs for workup of potential peripheral neuropathy these included TSH which was normal, B12 which was low normal at 330, folate which was normal at 22, Lyme screen which was negative, ESR 17. recommended follow-up in neurology clinic in 2 to 3 weeks with the PA and consideration of EMG testing. we did continue her on baby aspirin. Advised her to hold her Imitrex for now since it is a vasoconstrictor and may increase the risk of stroke in susceptible individuals, requested she discuss it further with her primary care low normal [id number] contact her primary care she would benefit from a supplement hypertensionshe was severely hypertensive in the emergency department. Permissive hypertension was allowed because of the ongoing stroke evaluation. I think this was situational related to the ED environment and stress/anxiety. This morning it has resolved most recent blood pressure was 137/86. We will continue her usual home antihypertensives, she will keep a log and follow-up in primary care [id number] elevated. Counseled on diet/nutrition. Follow-up in primary care hyperlipidemiaLDL is less than 100 which is good control on her current simvastatin Asymptomatic bacteruria No need for treatment at this time unless she starts to develop urinary symptoms, monitor I updated her and daughter at the bedside regarding the discharge plan of care Notes For Next Care Provider please follow-up blood pressure, prediabetes, recommend oral B12 supplement for low normal B12 level follow-up with neurology to consider EMG Admission HPI Per Admitting Provider Samantha Beyer is a 79 year old female who presents to the ER with left sided weakness that occurred 2 days ago and now resolved. Initially she did not pr esent to the ER as her symptoms resolved and it hadn't crossed her mind she might be having a stroke. [facility] Monday [facility] she noticed she was leaning over to the left and her elbow was below her waist, she was able to self correct but generally felt uncomfortable. She reports her symptoms resolved by the end of her shopping trip but during the evening her again noticed her leaning to the left side. She fell asleep and felt fine the following day. She talkd to her physical therapist she has been seeing for BPPV today about her symptoms and with her blood pressure elevation they discussed with her primary care physician and recommended she came to the ER for evaluation. No acute change in hearing, speech or vision. She has never had a heart attack or stroke. No neck pain. No urinary symptoms. She reports her vertigo has been ongoing for the last 1-2 years with no acute change. Discharge Exam PHYSICAL EXAMINATION Last 24h vital signs reviewed, see documentation in flowsheet General: comfortable appearing, no distress, sitting up in the chair eating lunch HEENT: Normocephalic, atraumatic, pupils round and equal, sclerae anicteric, no conjunctival injection, moist mucus membranes Lungs: Normal respiratory effort. Clear to auscultation bilaterally. No RRW Heart: Regular rate and rhythm, no murmurs. No JVD Abdomen: Soft, nondistended, bowel sounds present Extremities: Warm, dry, well-perfused. No extremity edema. Neuro: Alert and oriented x 4, face symmetric, speech normal in content and luis eduardo, PERRL,moves 4 extremities well Psych: Normal affect and behavior Discharge Plan Discharge Items Patient Disposition: Home - Self-Care Reason For Visit: RIGHT VERTEBRAL ARTERY DISSECTION Discharge Diagnosis: Peripheral vertigo, possible peripheral neuropathy, hypertension Activity: Resume your previous activity Non-emergency contact: Primary Care Provider and Neurologist Call non-emergency contact if: you have any medication questions and your symptoms worsen Follow-up/Referrals: Lola Galeas CRNP [Primary Care Provider] - 01/09/25 10:30 am (Hospital follow up scheduled January 09 at 10:30) Philippe Hauser MD [Physician] - (Neurology office will call Pt to schedule follow up) Diet: Low Sodium (2gm) Addtl Attending Provider Instructions: You were evaluated for some left sided neurological symptoms Initial CT imaging was concerning for a possible dissection (tear) in the wall of the right vertebral artery. Fortunately this was ruled out by a type of MRI study, in addition there was no evidence of stroke on brain MRI. The neurologist thinks that the symptoms may be related to your ongoing vertigo / inner ear problem. He did not think it seemed like TIA, however continue taking a baby aspirin and your statin daily because you do have evidence of some cerebrovascular disease. He would like you to follow up in neurology clinic (probably with his PA), in 2- 3 weeks. I sent some blood tests he requested that are pending. You can take meclizine as needed for vertigo symptoms. Sumatriptan (imitrex) does cause blood vessel constriction so you probably shoul d avoid using, as it could trigger stroke in people with risk factors. I think your blood pressure elevation yesterday was mostly related to the situation in the ED, which was stressful, and on the balance your BP has been normal today. Continue your usual medications, keep a log of your BP at home, and follow up with primary care. Make sure to take your BP the same time of day, after sitting and resting for five minutes with your feet flat on the floor. Don't rely on a single reading - if it is abnormal its ok to check it again after 10 minutes or so. If your BP is consistently elevated >150 / 90 call your doctor. If your BP is >190 / 120 seek immediate medical attention. Your hemoglobin A1c test was elevated - this shows that your average blood sugar over time is elevated in the pre-diabetic range. Focus on eating plenty of protein and reducing sugars and simple carbohydrates in your diet - try to replace with vegetables, non-starch foods, and whole grains. Avoid drinking b everages with sugar. Follow up in primary care. It was a pleasure taking care of you in the hospital, Nuria Perry MD Pending Studies at Discharge: Yes Stand-Alone Forms: My [facility], Smoking Cessation Medications and DC Order Prescriptions: New aspirin 81 mg Tablet,Delayed Release (Dr/Ec) 81 mg PO QAM Qty: 0 0RF Rx Instructions: buy over the counter meclizine 12.5 mg Tablet 12.5 mg PO Q8H PRN (Reason: vertigo) Qty: 30 0RF Continued gabapentin 300 mg capsule 300 mg PO BID Qty: 60 0RF losartan 50 mg tablet 50 mg PO BID Qty: 180 3RF Rx Instructions: PT TAKES TOGETHER metoprolol succinate 50 mg tablet extended release 24 hr 75 mg PO PM Qty: 135 3RF Rx Instructions: 75 mg orally PM; dose increase,; simvastatin 40 mg tablet 40 mg PO QPM Qty: 90 3RF Prolia 60 mg/mL syringe 60 mg subcut .COMPLEX Qty: 1 1RF Rx Instructions: 60 mg subcutaneously EVERY 6 MONTHS; PATIENT IS ON A ONE YEAR BREAK FOR 2024 ON THIS MEDICATION potassium chloride 20 mEq tablet extended release 20 meq PO UD Qty: 120 3RF Rx Instructions: Take 20meq by mouth on Sun/Tues/Thurs/Sat and 40meq on Mon/Wed/Fri ibuprofen 200 mg tablet 400 mg PO Q6H PRN (Reason: PAIN/FEVER) ascorbic acid (vitamin C) 500 mg capsule 500 mg PO QAM pantoprazole 20 mg tablet,delayed release (DR/EC) 20 mg PO BID Qty: 180 3RF Rx Instructions: TAKES 40 MG BY MOUTH TWICE DAILY 30 MINUTES BEFORE MEALS sertraline 50 mg Tablet 250 mg PO QAM clonazepam 0.5 mg tablet 0.25 mg PO TID polyethylene glycol 3350 [Miralax] 17 gram/dose Powder 17 g PO DAILY PRN (Reason: Constipation) Metamucil 3.4 gram/5.4 gram Powder 1 tsp PO DAILY PRN (Reason: Constipation) cholecalciferol (vitamin D3) [Vitamin D3] 25 mcg (1,000 unit) capsule 2,000 unit PO QPM Rx Instructions: TOTAL DOSE 1800 UNITS--TAKE WITH 2-400 UNIT CAP. buspirone 10 mg Tablet 20 mg PO TID calcium carbonate 500 mg calcium (1,250 mg) Tablet 500 mg PO QAM cholecalciferol (vitamin D3) [Vitamin D3] 10 mcg (400 unit) Tablet 20 mcg PO DAILY Rx Instructions: TOTAL DOSE 1800 UNITS--TAKE WITH 2-400 UNIT CAP. magnesium oxide 400 mg magnesium Tablet 800 mg PO DAILY trazodone 50 mg tablet 25 mg PO QPM Held sumatriptan succinate 100 mg tablet 50 mg PO UD PRN (Reason: Migraine Headache) Hold Instructions: Resume on 01/16/25. discuss risks and benefits with primary care Rx Instructions: Take 50 mg at unset of headache PT CUTS TABLET IN HALF Discharge Orders: Discharge Order (Routine); Ordered 01/02/25 Ordered By: Nuria Bryant/Other Patient Handouts: Prediabetes, 5 Steps for Eating Healthier, High Blood Pressure Tx Admission Data Admit Date/Time: 01/01/25 19:49 Attending Provider: Nuria Perry Admit Provider: Kenan Nuñez Primary Care Provider: Lola Galeas Other Providers: Kev Bobby; Philippe Hauser Other Interventions: Discharge Summary Assessment (RN) Last Done: 01/02/25 12:47 Hospital Stay Data Consultations 01/01/25 19:27 ED Decision to Admit Stat 01/01/25 19:37 Consult Neurology Routine Diagnostic Imagining Performed 01/01/25 16:59 CT head/brain wo con Stat CTA head w con [CT angio head w con] Stat CTA neck with con [CT angio neck with con] Stat 01/01/25 19:36 MR angio head wo con Stat 01/01/25 19:45 MR angio neck wo/w con Stat MRI Brain [MR brain wo con] Stat Pending Results Patient Have Any Pending Studies at Discharge: Yes Discharge Instructions Given to Patient (Per Discharging Provider) You were evaluated for some left sided neurological symptoms Initial CT imaging was concerning for a possible dissection (tear) in the wall of the right vertebral artery. Fortunately this was ruled out by a type of MRI study, in addition there was no evidence of stroke on brain MRI. The neurologist thinks that the symptoms may be related to your ongoing vertigo / inner ear problem. He did not think it seemed like TIA, however continue taking a baby aspirin and your statin daily because you do have evidence of some cerebrovascular disease. He would like you to follow up in neurology clinic (probably with his PA), in 2- 3 weeks. I sent some blood tests he requested that are pending. You can take meclizine as needed for vertigo symptoms. Sumatriptan (imitrex) does cause blood vessel constriction so you probably should avoid using, as it could trigger stroke in people with risk factors. I think your blood pressure elevation yesterday was mostly related to the situation in the ED, which was stressful, and on the balance your BP has been normal today. Continue your usual medications, keep a log of your BP at home, and follow up with primary care. Make sure to take your BP the same time of day, after sitting and resting for five minutes with your feet flat on the floor. Don't rely on a single reading - if it is abnormal its ok to check it again after 10 minutes or so. If your BP is consistently elevated >150 / 90 call your doctor. If your BP is >190 / 120 seek immediate medical attention. Your hemoglobin A1c test was elevated - this shows that your average blood sugar over time is elevated in the pre-diabetic range. Focus on eating plenty of protein and reducing sugars and simple carbohydrates in your diet - try to replace with vegetables, non-starch foods, and whole grains. Avoid drinking beverages with sugar. Follow up in primary care. It was a pleasure taking care of you in the hospital, Nuria Perry MD Total Time Total Time Spent Total Time Spent (In Minutes): I personally spent: 45 minutes today on clinical care activities including: reviewing chart notes and vital signs reviewing labs reviewing studies discussion with [employer] iam consultant(s) examining and counseling the patient counseling the patient's family writing orders writing prescriptions, discharge instructions documentation Coding Level of Care Code 38890 INP/OBS DISCH >30 MIN Diagnoses Vertebral artery dissection I77.74 Vestibular dysfunction H81.90 BPPV (benign paroxysmal positional vertigo) H81.10 Peripheral neuropathy G62.9 Stroke-like symptoms R29.90 Primary hypertension I10 Hypertension type: primary hypertension Prediabetes R73.03
[2025-01-03] MEDS ORDERED: POTASSIUM CHLORIDE CRTAB 20 MEQ TABCR PO SCH (09:00)
== END 2025-01-02 13:40 | disposition home or self-care (01) ==
LOC: SUATTDRO → 2S 13:21 → ED 13:21 → SUATTDRO 19:49 → 2S 20:10